=== PATIENT | female | born 1940 | race Caucasian/White ===

== ENCOUNTER → 2020-05-10 11:04 | Outpatient (CLI) | payer OTHER, SELFPAY ==
[2020-05-10 13:17] LABS: COVID19 -Nasal RAPID Negative (Negative)
== END ==
PROVIDERS: PCP Nurse Practitioner Family; Visit Provider Physician Assistant
DX: Z01.812 Encounter for preprocedural laboratory examination (principal); Z20.822 Contact with and (suspected) exposure to COVID-19
CPT/HCPCS: 87635; C9803

== ENCOUNTER → 2020-05-11 10:04 | Outpatient (CLI) | payer OTHER, SELFPAY ==
--- NOTE | 2020-05-11 15:04 | PM.TREADMILL ---
Cardiac Stress Test Report Referral & Results Date Patient Seen: 05/11/20 Time Patient Seen: 15:05 Requesting provider: Saroj Prabhakar Indication: precordial pain Rest ECG: sinus rhythm Procedure Note: Standard Remi protocol, 5:00 mins, 5.1 METS Good exercise capacity, JULIA -7% Normal hemodynamic response to exercise No chest pain or anginal symptoms No significant ST changes at peak exercise, rare PAC Impression: Normal exercise stress test Please note: Actual ECG tracings can be found in the PACS system.
--- NOTE | 2020-05-11 21:52 | DI.NM.S_ITS ---
DATE OF SERVICE: 05/11/2020 PROCEDURE: Exercise perfusion study. INDICATIONS: Chest pain with underlying hypertension, SVT. RADIOPHARMACEUTICAL: 25.2 millicurie of technetium-99m Myoview IV was injected at stress and 12.2 millicurie of technetium-99m Myoview IV was injected at rest. CARDIAC STRESS: The patient underwent exercise perfusion study under the supervision of an attending staff. She walked on Remi protocol for 5 minutes 01 seconds, achieved 129 percent of target heart rate, normal blood pressure response, -7 percent of JULIA and 7 METs of workload. No anginal symptoms. The patient felt dyspnea. Baseline rhythm was sinus. During peak exercise in early recovery, there was about less than [address] depression in Inferolateral leads, which got resolved within 1 minute in recovery. Rare PACs. No significant sustained ventricular arrhythmias seen. RAW DATA: There is adequate myocardial uptake. Breast shadow was seen. GATED STUDY: Resting LV ejection fraction 80% percent and stress LV ejection fraction 89 percent. No obvious wall motion abnormalities. Resting end- diastolic volume 59 mL. TID ratio 0.75, which is within normal limits. Lung/heart ratio 0.35, which is within normal limits. MYOCARDIAL PERFUSION: Stress supine images revealed minimally decreased perfusion of distal septum. The resting supine images revealed minimally decreased perfusion of apex. During stress prone, all those defects were normalized. There was normal myocardial perfusion. CONCLUSION: I will call this study a normal myocardial perfusion study with evidence of breast tissue attenuation artifact, which got resolved during prone images. Fair exercise tolerance. Enhanced chronotropic response. No significant sustained arrhythmias seen. Overall, this is a low-risk myocardial perfusion scan. The patient had a perfusion scan in October,, which also did not reveal any obvious ischemia infarction. There was breast tissue attenuation artifact seen that time as well. 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
== END ==
PROVIDERS: PCP Nurse Practitioner Family; Referring Provider Nurse Practitioner Family; Visit Provider Specialist
DX: R07.2 Precordial pain (principal); I47.1 Supraventricular tachycardia; I10 Essential (primary) hypertension
CPT/HCPCS: 78452; 93017; A9502

== ENCOUNTER → 2020-10-04 12:44 | Outpatient (CLI) | payer OTHER, SELFPAY ==
--- NOTE | 2020-10-04 | DI.RAD.S_ITS ---
PROCEDURE: XR LUMBAR SPINE 2-3V INDICATIONS: Pain in unspecified hip/Pain in unspecified knee TECHNIQUE: 3 views of the lumbar spine were acquired. COMPARISON: None. FINDINGS: Bones: 5 mia-[id number]-[id number] vertebrae are present. There is normal bony alignment. No vertebral body compression fractures. No suspicious bony lesions. Severe disc height loss at L4-L5 and L5-S1. Multilevel lower lumbar facet arthropathy. Probable foraminal stenosis at L4-L5 and L5-S1. Soft tissues: Overlying bowel gas pattern is normal. No suspicious soft tissue calcifications. IMPRESSION: Lower lumbar degenerative change with probable foraminal stenosis at L4-L5 and L5-S1. No evidence acute bony abnormality of the lumbar spine. If clinical suspicion and/or symptoms persist, further assessment with repeat plain films, or advanced imaging (e.g., CT, MRI, or bone scan) may be helpful for further assessment. Dictated by: Bandar Mendez M.D. on 10/04/2020 at 16:17 Approved by: Bandar Mendez M.D. on 10/04/2020 at 16:19
--- NOTE | 2020-10-04 | DI.RAD.S_ITS ---
PROCEDURE: XR HIP W PEL IF DONE PERRY MIN 4V INDICATIONS: Pain in unspecified hip/Pain in unspecified knee TECHNIQUE: AP pelvis with lateral view(s) of the bilateral hip(s). COMPARISON: None. FINDINGS: Bones: No fractures or dislocations. Pelvic ring appears intact. No suspicious bony lesions. 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 Soft tissues: The visualized bowel gas pattern is normal. No suspicious soft tissue calcifications. IMPRESSION: The degenerative osteoarthritis present at each hip is virtually identical and moderately severe. No prior trauma found. Dictated by: Kale Mendoza M.D. on 10/04/2020 at 14:05 Approved by: Kale Mendoza M.D. on 10/04/2020 at 14:06
--- NOTE | 2020-10-04 | DI.RAD.S_ITS ---
PROCEDURE: XR KNEE STANDING BI INDICATIONS: Pain in unspecified hip/Pain in unspecified knee TECHNIQUE: 6 total views of the bilateral knees . COMPARISON: None. FINDINGS: Bones: No acute fractures or dislocations. But there is asymmetric knee joint osteoarthritis greater on the right than the left at the medial compartments. There is near severe degeneration at the medial right knee and moderately severe such degeneration at the medial left knee. At the patellofemoral joint is mild knee joint space narrowing, greater on the right than left at the lateral facet. Patellar alignment is normal on the sunrise view. No suspicious bony lesions. Joint spaces appear normal with weightbearing. Soft tissues: No knee joint effusions. No suspicious soft tissue calcification. IMPRESSION: Asymmetric knee joint osteoarthritis right greater than left at the medial compartment and also the lateral facet of the patellofemoral joint. No effusion or loose body found. Dictated by: Kale Mendoza M.D. on 10/04/2020 at 14:06 Approved by: Kale Mendoza M.D. on 10/04/2020 at 14:07
== END ==
PROVIDERS: PCP Physician Assistant; Referring Provider Physician Assistant; Visit Provider Physician Assistant
DX: M54.5 Low back pain (principal); M47.816 Spondylosis without myelopathy or radiculopathy, lumbar region; M25.551 Pain in right hip; M25.561 Pain in right knee; M25.552 Pain in left hip; M25.562 Pain in left knee; M16.0 Bilateral primary osteoarthritis of hip; M17.0 Bilateral primary osteoarthritis of knee
CPT/HCPCS: 72100; 73522; 73565

== ENCOUNTER → 2021-01-15 09:57 | Outpatient (CLI) | payer OTHER, SELFPAY ==
[2021-01-15 10:32] LABS: Add Manual Diff / Slide Review NO; Basophils Absolute Auto 0 /uL (0-100); Basophils Percent Auto 0.9 % (0-2); Eosinophils Absolute Auto 100 /uL (0-450); Eosinophils Percent Auto 1.1 % (2-4); Hematocrit 39.8 % (36-46); Hemoglobin 13.3 g/dL (12.0-16.0); Lymphocytes Absolute Auto 2700 /uL (1100-4500); Lymphocytes Percent Auto 50.5 % (25-40); Mean Corpuscular HGB Conc 33.4 % (30-36); Mean Corpuscular Hemoglobin 34.1 PG (26-34); Mean Corpuscular Volume 102.1 fL (80-100); Monocytes Absolute Auto 500 /uL (0-900); Monocytes Percent Auto 9.4 % (3-14); Neutrophils Absolute Auto 2000 /uL (1500-7000); Neutrophils Percent Auto 38.1 % (50-75); Platelet Count 179 X10^3/uL (150-400); Red Cell Distribution Width 12.9 % (11.6-14.8); White Blood Cell Count 5.3 X10^3/uL (4.5-11.0)
[2021-01-15 11:14] LABS: Alanine Aminotransferase 24 IU/L (<35); Albumin Globulin Ratio 1.4 (1.0-2.8); Alkaline Phosphatase 62 U/L (38-126); Aspartate Aminotransferase 31 IU/L (14-36); BUN Creatinine Ratio 28.4 (6-22); Bilirubin Total 0.5 mg/dL (0.2-1.3); Blood Urea Nitrogen 23 mg/dL (7-17); Calcium 9.9 mg/dL (8.4-10.2); Carbon Dioxide 31 mmol/L (22-32); Chloride 104 mmol/L (98-107); Cholesterol 173 mg/dL (140-199); Estimated Glomerular Filt Rate > 60.0 mL/min (>60); Globulin 2.8 g/dL (1.7-4.1); Glucose 112 mg/dL (80-110); HDL Cholesterol 103 mg/dL (40-60); HEMOLYSIS < 15 (0-50); LDL Cholesterol Calculated 49 mg/dL (<100); Potassium 5.3 mmol/L (3.4-5.1); Sodium 140 mmol/L (137-145); Total Protein 6.8 g/dL (6.3-8.2); Triglycerides 105 mg/dL (35-150)
== END ==
PROVIDERS: PCP Physician Assistant; Referring Provider Physician Assistant; Visit Provider Physician Assistant
DX: E78.2 Mixed hyperlipidemia (principal)
CPT/HCPCS: 36415; 80053; 80061; 85025

== ENCOUNTER → 2021-02-19 08:46 | Outpatient (CLI) | payer OTHER, SELFPAY ==
[2021-02-19 09:24] LABS: Alanine Aminotransferase 24 IU/L (<35); Albumin 3.9 g/dL (3.5-5.0); Albumin Globulin Ratio 1.5 (1.0-2.8); Alkaline Phosphatase 60 U/L (38-126); Aspartate Aminotransferase 33 IU/L (14-36); Bilirubin Total 0.4 mg/dL (0.2-1.3); Blood Urea Nitrogen 19 mg/dL (7-17); Calcium 9.3 mg/dL (8.4-10.2); Carbon Dioxide 31 mmol/L (22-32); Chloride 102 mmol/L (98-107); Cholesterol 156 mg/dL (140-199); Estimated Glomerular Filt Rate > 60.0 mL/min (>60); Globulin 2.6 g/dL (1.7-4.1); Glucose 100 mg/dL (80-110); HDL Cholesterol 95 mg/dL (40-60); HEMOLYSIS < 15 (0-50); LDL Cholesterol Calculated 43 mg/dL (<100); Potassium 4.8 mmol/L (3.4-5.1); Sodium 137 mmol/L (137-145); Total Protein 6.5 g/dL (6.3-8.2); Triglycerides 90 mg/dL (35-150)
[2021-02-19 09:38] LABS: Add Manual Diff / Slide Review NO; Basophils Absolute Auto 0 /uL (0-100); Basophils Percent Auto 0.4 % (0-2); Eosinophils Absolute Auto 100 /uL (0-450); Eosinophils Percent Auto 1.6 % (2-4); Hemoglobin 12.7 g/dL (12.0-16.0); Lymphocytes Absolute Auto 3400 /uL (1100-4500); Lymphocytes Percent Auto 59.5 % (25-40); Mean Corpuscular HGB Conc 34.3 % (30-36); Mean Corpuscular Hemoglobin 33.9 PG (26-34); Mean Corpuscular Volume 98.9 fL (80-100); Monocytes Absolute Auto 500 /uL (0-900); Neutrophils Absolute Auto 1700 /uL (1500-7000); Neutrophils Percent Auto 29.5 % (50-75); Platelet Count 183 X10^3/uL (150-400); Red Blood Cell Count 3.74 X10^6/uL (4.0-5.2); Red Cell Distribution Width 12.5 % (11.6-14.8); White Blood Cell Count 5.7 X10^3/uL (4.5-11.0)
== END ==
PROVIDERS: PCP Physician Assistant; Referring Provider Physician Assistant; Visit Provider Physician Assistant
DX: E78.2 Mixed hyperlipidemia (principal)
CPT/HCPCS: 36415; 80053; 80061; 85025

== ENCOUNTER → 2021-05-22 09:30 | Outpatient (CLI) | payer OTHER, SELFPAY ==
--- NOTE | 2021-05-22 | DI.MRI.S_ITS ---
PROCEDURE: MR LUMBAR SPINE WO CON INDICATIONS: LUMBAR RADICALOPATHY TECHNIQUE: Noncontrast sagittal T1 spin echo and T2 fast echo, sagittal STIR, axial T1 and T2 fast spin echo through the lumbar spine. In cases with scoliosis, additional coronal T2 fast spin echo may be performed. COMPARISON: [facility], CR, XR LUMBAR SPINE 2-3V, 10/04/2020, 12:49. FINDINGS: Image quality: Excellent. Alignment and Curvature: 5 lumbar type vertebral bodies are present by plain film. There is normal bony alignment. Bone Marrow: Marrow is of normal overall signal. No acute vertebral body compression fractures. Mild reactive signal throughout the endplates of the lumbar and lower thoracic spine. Spinal Cord: Conus medullaris terminates at the lower L1 level. Visualized cord demonstrates normal signal and size. Paraspinous Soft Tissues: No paravertebral masses. T12-L1: Mild disc desiccation. No significant canal, or foraminal stenosis. L1-L2: Mild disc desiccation. No significant canal, or foraminal stenosis. L2-L3: Mild disc height loss and desiccation. Mild diffuse disc bulge. Mild facet and ligamentum flavum hypertrophy. Mild epidural lipomatosis. Mild canal stenosis. Mild bilateral foraminal stenosis. L3-L4: Mild disc height loss and desiccation. Mild diffuse disc bulge. Mild facet and ligamentum flavum hypertrophy. Moderate canal stenosis. Mild right and moderate left foraminal stenosis. L4-L5: Severe disc height loss and desiccation. Mild diffuse disc bulge. Mild facet and ligamentum flavum hypertrophy. Mild canal stenosis. Mild bilateral foraminal stenosis. L5-S1: Severe disc height loss and desiccation. Mild diffuse disc bulge/osteophyte. Mild bilateral facet and ligamentum flavum hypertrophy. Mild canal stenosis. Moderate bilateral foraminal stenosis. IMPRESSION: 1. Multilevel degenerative disc and facet disease, as well as ligamentum flavum hypertrophy and epidural lipomatosis. 2. Multilevel canal stenoses, worst at L3-L4, where there is moderate canal stenosis. 3. Multilevel foraminal stenoses, worst at L5-S1, where there is moderate foraminal stenosis. Dictated by: Ernst Galindo M.D. on 05/22/2021 at 10:51 Approved by: Ernst Galindo M.D. on 05/22/2021 at 10:54
== END ==
PROVIDERS: PCP Physician Assistant; Referring Provider Physician Assistant; Visit Provider Physician Assistant
DX: M51.16 Intervertebral disc disorders with radiculopathy, lumbar region (principal); M51.17 Intervertebral disc disorders with radiculopathy, lumbosacral region; M48.061 Spinal stenosis, lumbar region without neurogenic claudication; M48.07 Spinal stenosis, lumbosacral region
CPT/HCPCS: 72148

== ENCOUNTER → 2021-06-22 12:01 | Outpatient (CLI) | payer OTHER, SELFPAY ==
[2021-06-22 14:01] LABS: Alanine Aminotransferase 20 IU/L (<35); Albumin 4.2 g/dL (3.5-5.0); Albumin Globulin Ratio 1.4 (1.0-2.8); Alkaline Phosphatase 53 U/L (38-126); Aspartate Aminotransferase 27 IU/L (14-36); BUN Creatinine Ratio 25.7 (6-22); Bilirubin Total 0.5 mg/dL (0.2-1.3); Blood Urea Nitrogen 19 mg/dL (7-17); Calcium 9.6 mg/dL (8.4-10.2); Carbon Dioxide 28 mmol/L (22-32); Chloride 105 mmol/L (98-107); Estimated Glomerular Filt Rate > 60.0 mL/min (>60); Globulin 2.9 g/dL (1.7-4.1); Glucose 118 mg/dL (80-110); HEMOLYSIS < 15 (0-50); Potassium 4.5 mmol/L (3.4-5.1); Sodium 140 mmol/L (137-145); Total Protein 7.1 g/dL (6.3-8.2)
== END ==
PROVIDERS: PCP Physician Assistant; Referring Provider Physician Assistant Medical; Visit Provider Specialist
DX: E78.00 Pure hypercholesterolemia, unspecified (principal)
CPT/HCPCS: 36415; 80053

== ENCOUNTER → 2021-09-18 08:23 | Outpatient (CLI) | payer OTHER, SELFPAY ==
[2021-09-18 10:07] LABS: Alanine Aminotransferase 20 IU/L (<35); Albumin 3.9 g/dL (3.5-5.0); Albumin Globulin Ratio 1.3 (1.0-2.8); Alkaline Phosphatase 70 U/L (38-126); Aspartate Aminotransferase 30 IU/L (14-36); BUN Creatinine Ratio 25.3 (6-22); Bilirubin Total 0.5 mg/dL (0.2-1.3); Blood Urea Nitrogen 20 mg/dL (7-17); Calcium 9.3 mg/dL (8.4-10.2); Carbon Dioxide 31 mmol/L (22-32); Chloride 104 mmol/L (98-107); Estimated Glomerular Filt Rate > 60 mL/min (>60); Glucose 118 mg/dL (80-110); HEMOLYSIS < 15 (0-50); Magnesium 1.9 mg/dL (1.6-2.3); Potassium 4.5 mmol/L (3.4-5.1); Sodium 140 mmol/L (137-145); Total Protein 6.9 g/dL (6.3-8.2)
[2021-09-20 07:47] LABS: Cholesterol, Total 166 mg/dL (100-199); HDL-Cholesterol 87 mg/dL (>39); HDL-Particle (Total) 49.5 umol/L (>=30.5); LDL Particle 452 nmol/L (<1000); LDL Size 20.9 nm (>20.5); LDL-Cholsterol 58 mg/dL (0-99); LP-IR Score 35 (<=45); Small LDL- Particle <90 nmol/L (<=527); Triglycerides 126 mg/dL (0-149)
== END ==
PROVIDERS: PCP Physician Assistant; Visit Provider Physician Assistant Medical
DX: I47.1 Supraventricular tachycardia (principal); E78.00 Pure hypercholesterolemia, unspecified; R00.0 Tachycardia, unspecified
CPT/HCPCS: 36415; 80053; 80061; 83704; 83735

== ENCOUNTER → 2021-10-16 09:06 | Outpatient (CLI) | payer OTHER, SELFPAY ==
[2021-10-16 10:51] LABS: Add Manual Diff / Slide Review NO; Basophils Absolute Auto 0 /uL (0-100); Basophils Percent Auto 0.3 % (0-2); Eosinophils Absolute Auto 100 /uL (0-450); Eosinophils Percent Auto 1.3 % (2-4); Hematocrit 37.2 % (36-46); Hemoglobin 12.9 g/dL (12.0-16.0); Lymphocytes Absolute Auto 2800 /uL (1100-4500); Mean Corpuscular HGB Conc 34.6 % (30-36); Mean Corpuscular Hemoglobin 34.9 PG (26-34); Mean Corpuscular Volume 100.9 fL (80-100); Monocytes Absolute Auto 600 /uL (0-900); Monocytes Percent Auto 9.8 % (3-14); Neutrophils Absolute Auto 2300 /uL (1500-7000); Neutrophils Percent Auto 40.6 % (50-75); Platelet Count 188 X10^3/uL (150-400); Red Blood Cell Count 3.69 X10^6/uL (4.0-5.2); Red Cell Distribution Width 12.4 % (11.6-14.8); White Blood Cell Count 5.7 X10^3/uL (4.5-11.0)
[2021-10-16 11:08] LABS: Alanine Aminotransferase 19 IU/L (<35); Albumin Globulin Ratio 1.3 (1.0-2.8); Alkaline Phosphatase 74 U/L (38-126); Aspartate Aminotransferase 27 IU/L (14-36); BUN Creatinine Ratio 26.7 (6-22); Bilirubin Total 0.7 mg/dL (0.2-1.3); Blood Urea Nitrogen 20 mg/dL (7-17); Calcium 9.4 mg/dL (8.4-10.2); Carbon Dioxide 30 mmol/L (22-32); Chloride 100 mmol/L (98-107); Estimated Glomerular Filt Rate > 60 mL/min (>60); Globulin 3.1 g/dL (1.7-4.1); Glucose 117 mg/dL (80-110); HEMOLYSIS < 15 (0-50); Potassium 4.4 mmol/L (3.4-5.1); Sodium 135 mmol/L (137-145); Total Protein 7.1 g/dL (6.3-8.2)
[2021-10-16 11:54] LABS: Hemoglobin A1C% w Est Avg Glu 5.4 % (4.0-6.0)
== END ==
PROVIDERS: PCP Physician Assistant; Referring Provider Physician Assistant; Visit Provider Physician Assistant
DX: I10 Essential (primary) hypertension (principal); R73.9 Hyperglycemia, unspecified
CPT/HCPCS: 36415; 80053; 83036; 85025

== ENCOUNTER → 2021-10-24 07:59 | Outpatient (CLI) | payer OTHER, SELFPAY ==
[2021-10-24 09:02] LABS: Add Manual Diff / Slide Review NO; Basophils Absolute Auto 0 /uL (0-100); Basophils Percent Auto 0.5 % (0-2); Eosinophils Absolute Auto 100 /uL (0-450); Eosinophils Percent Auto 1.7 % (2-4); Hematocrit 37.7 % (36-46); Hemoglobin 12.5 g/dL (12.0-16.0); Lymphocytes Absolute Auto 3100 /uL (1100-4500); Lymphocytes Percent Auto 49.1 % (25-40); Mean Corpuscular HGB Conc 33.1 % (30-36); Mean Corpuscular Hemoglobin 33.9 PG (26-34); Mean Corpuscular Volume 102.3 fL (80-100); Monocytes Absolute Auto 600 /uL (0-900); Monocytes Percent Auto 10.3 % (3-14); Neutrophils Absolute Auto 2400 /uL (1500-7000); Neutrophils Percent Auto 38.4 % (50-75); Platelet Count 218 X10^3/uL (150-400); Red Blood Cell Count 3.68 X10^6/uL (4.0-5.2); Red Cell Distribution Width 12.4 % (11.6-14.8); White Blood Cell Count 6.2 X10^3/uL (4.5-11.0)
[2021-10-24 09:11] LABS: Hemoglobin A1C% w Est Avg Glu 5.4 % (4.0-6.0)
[2021-10-24 09:16] LABS: Appearance Urine UA CLEAR; Bilirubin Urine UA NEGATIVE (NEGATIVE); Color Urine UA YELLOW; Glucose Urine UA NEGATIVE (Negative); Ketones Urine UA NEGATIVE (NEGATIVE); Leukocyte Esterase Urine UA NEGATIVE (NEGATIVE); Nitrite Urine UA NEGATIVE (Negative); Occult Blood Urine UA 2+ (Negative); Protein Urine UA NEGATIVE (Negative); Urobilinogen Urine UA 0.2 E.U./dL (0.2)
[2021-10-24 09:26] LABS: Blood Urea Nitrogen 20 mg/dL (7-17); Calcium 9.2 mg/dL (8.4-10.2); Carbon Dioxide 29 mmol/L (22-32); Chloride 104 mmol/L (98-107); Estimated Glomerular Filt Rate > 60 mL/min (>60); Glucose 111 mg/dL (80-110); HEMOLYSIS < 15 (0-50); Potassium 4.9 mmol/L (3.4-5.1); Sodium 138 mmol/L (137-145)
[2021-10-24 09:29] LABS: Bacteria Urine Few (2-10); Culture Indicated Urine Specimen Cultured; Hyaline Casts Urine 0-1/LPF; RBC Urine 0-1/HPF (0-5/HPF); Squamous Epithelial Cell Urine 0-1 /HPF (0-5/HPF); WBC Urine 1-5/HPF (0-5/HPF)
== END ==
PROVIDERS: PCP Physician Assistant; Referring Provider Orthopaedic Surgery Foot and Ankle Surgery; Visit Provider Orthopaedic Surgery Foot and Ankle Surgery
DX: Z01.818 Encounter for other preprocedural examination (principal); R73.9 Hyperglycemia, unspecified; Z01.812 Encounter for preprocedural laboratory examination; N39.0 Urinary tract infection, site not specified
CPT/HCPCS: 36415; 80048; 81001; 83036; 85025; 87086; 93005; 93010

== ENCOUNTER → 2021-10-31 10:39 | Outpatient (CLI) | payer OTHER, SELFPAY ==
[2021-10-31 12:00] LABS: COVID19 -Nasal RAPID Negative (Negative)
== END ==
PROVIDERS: PCP Physician Assistant; Referring Provider Orthopaedic Surgery Foot and Ankle Surgery; Visit Provider Orthopaedic Surgery Foot and Ankle Surgery
DX: Z20.822 Contact with and (suspected) exposure to COVID-19 (principal)
CPT/HCPCS: 87635; C9803

== ENCOUNTER 2021-11-02 10:50 | Day surgery (SDC) | payer OTHER, SELFPAY ==
[2021-10-24 11:52] VITALS: BMI 27.0
[2021-11-02] VITALS (24 sets, daily range): BP systolic 101–153; BP diastolic 47–87; PULSE 61–94; RESP 8–22; TEMP 35.7–36.7; O2SAT 73–100; BMI 27.0
--- NOTE | 2021-11-02 06:00 | DI.RAD.S_ITS ---
PROCEDURE: XR KNEE RT 1TO2V INDICATIONS: prosthesis placement TECHNIQUE: 2 view(s) of the knee acquired. COMPARISON: None. FINDINGS: Bones: Patient is status post knee joint arthroplasty. Hardware components are in expected positions. Visualized bony structures are intact. Soft tissues: Overlying postoperative changes are noted. IMPRESSION: Expected appearance status post placement of right knee arthroplasty. Dictated by: Silvestre Saavedra RRA Interpreted: Oralia Szymanski MD on 11/02/2021 at 16:57 Transcribed by: LISA on 11/02/2021 at 16:57 Approved by: Oralia Szymanski M.D. on 11/02/2021 at 17:28
[2021-11-02] MEDS: ACETAMINOPHEN 325 MG TABLET 975 MG PO (11:36)
[2021-11-02] MEDS: CELECOXIB 200 MG CAPSULE PO (11:36)
[2021-11-02] MEDS: PREGABALIN 75 MG CAPSULE PO (11:37)
--- NOTE | 2021-11-02 11:50 | PM.PREOP ---
Pre-operative Note COVID-19 COVID-19 status: Negative Interval Note History & Physical reviewed/Exam performed by Physician: Yes Changes to H&P: No
[2021-11-02] MEDS: LACTATED RINGERS 1,000 ML 42 ML IV ×2 (11:55→15:57)
[2021-11-02] MEDS: CLINDAMYCIN 900 MG/50 ML PIGGYBACK 50 MG IV ×2 (12:40→21:28)
[2021-11-02] MEDS: TRANEXAMIC ACID 1,000 MG VIAL 1000 MG INJ ×2 (12:59→14:59)
--- NOTE | 2021-11-02 13:04 | SUR.OPER ---
Supine on padded OR bed. Pillow under head, arms secured on padded armboards <90 degree abduction. Safety belt across torso. Non-operative leg secured with tape over blanket over lower leg. Operative leg secured in DeMayo/Sanjeev/Nathe positioner. Foam padded brace at thigh of operative leg.
[2021-11-02] MEDS: BUPIVACAINE LIPOSOME 266 MG/20 ML VIAL INJ (13:12)
[2021-11-02] MEDS: MORPHINE 4 MG/ML INJ INJ (13:13)
[2021-11-02] MEDS: BUPIVACAINE 0.5% W/ EPI (PF) 30 ML VIAL INJ (13:18)
--- NOTE | 2021-11-02 15:32 | P.OP_ITS ---
Operative Date/Time/Diagnoses Date of procedure: 11/02/21 Time of procedure: 12:45 Pre-op diagnosis: Right knee arthritis Post-op diagnosis: same Procedure & Clinicians Procedure: Right total knee arthroplasty Same procedure as scheduled: Yes Indications: The patient is a 81-year-old female with end-stage buri-ap-ioiz knee arthritis. The patient has a significant right knee arthritis. They have failed conservative treatment with activity modifications, injections, physical therapy and bracing. They has been indicated for total knee replacement. The risks and benefits of the procedure have been discussed with the patient even opportunity to ask questions. The risks of surgery include but are not limited to infection, malunion, nonunion, fracture, loosening, persistence of pain, damage to nerves and blood vessels, need for additional procedures, DVT, PE, cardiopulmonary complications and . The patient expressed a thorough understanding of the risks and benefits of surgery and has elected to proceed. Consent was signed in the office. During the operation the services of physician surgical services manager were medically indicated and necessary to provide the exposure of the operative site for the surgical procedure and to maintain the limb in a proper position to carry out the procedure safely and efficiently. Without a qualified assistant signal maintainer being present this would extend the operative procedure and would have made the procedure more technically difficult to perform. The surgical services manager was medically necessary for the proper positioning, retraction and manipulation of the limb, proper exposure, and manipulation of the tissue for implantation implants and closure. Surgeon: Ada Dangelo Cdl Team Truck Driver: Mirella Mccormick Anesthesia Type: General and Local Operative Notes Findings: End-stage arthritis tricompartmental. Calcified lateral meniscus Closure Type: primary Specimen(s): none sent Prosthetic devices, grafts, tissues, transplants, or devices: Mauricio and nephew JourneyII BCS cobalt chromium femoral component size 3 right Journey nonporous tibial base plate size 3 right 32 mm 7.5 thickness round patella 9 mm journey poly right size 3 Estimated Blood Loss (mL): 50 Blood products transfused: none Tourniquet time (min): 113 Procedure in detail: Patient was seen in the preoperative area where the patient and site of surgery were identified in the operative knee was marked informed consent confirmed. Patient received the appropriate preoperative antibiotics and medications was taken to the operating room placed on operating table in the supine position. general anesthetic were administered. The operative extremity was then prepped and draped in the standard sterile fashion with a nonsterile tourniquet high on the thigh. Patient was placed on the green foam bolsters. A lateral post was placed at the level of the proximal thigh back as a lateral post. Formal time-out procedure was performed confirming the patient's side and site of surgery and administration of appropriate preoperative antibiotics. Clindamycin was used for penicillin allergy. And implants were in the room accounted for. All were in agreement. Patient was prepped and draped in the standard sterile fashion and the foot was placed into the [facility] leg severino. This was taken into high flexion and the incision was marked out over the anterior knee to the level of the medial tubercle tubercle. The Esmarch was then used for exsanguination and the tourniquet was inflated to 250 mmHg. Was made through the skin and subcutaneous tissue in high flexion this was then brought down into 30? of flexion for the medial parapatellar arthrotomy. A marker was used to norma the arthrotomy site for later repair. Joint fluid was evacuated. The anterior osteophytes and soft tissues were removed. Routine medial release was initially made along the medial proximal tibia. Then the rotational landmarks of Whitesides line and the trans epicondylar axis were marked on the femur with electrocautery. Then the intramedullary guide for the femur was created. The distal femoral cut was made in 6? of valgus using the intramedullary guide with the cut setting on 0 standard cut as there was no preoperative flexion contracture. The ACL and PCL released. Calcified lateral meniscus was removed. The proximal tibia was then cut using the intramedullary guide taking 8 mm off the less involved side this was the lateral plateau and between 4 and 5 mm off the medial side as this patient was quite neutral and her tricompartmental arthritis. The Yifan wing was used to check the slope through the guide. In extension remainders of the medial and lateral menisci were removed. The extension flexion gaps were then checked using the flexion extension blocks . A 9 mm poly provided excellent stability. The Femur was then sized and the rotation set using the posterior condyle referencing 3? of external rotation. This measured a size 3. Cut block was then placed and the anterior, posterior and chamfer cuts were then made. The posterior osteophytes and soft tissues were then removed. The popliteus tendon was visualized and protected. Then in extension the posterior capsule was injected with approximately 1/4 of the mixture of 60 mL of 0.25% Marcaine and 20 mL of Exparel care to avoid excessive injection posterior laterally. The remainder of this was saved for the capsule and subcutaneous tissue and placed during cement curing. Attention was then returned to the tibia and this was prepared with the rotation set by the extramedullary guide. Lined up with the tibial crest and the 2nd toe. The tibia was sized and a size 3 fit well without overhang. The tibial trial was then pinned in place and the trial femoral components were placed. Then the intercondylar notch was cut through the femoral trial to create the box this was done with the distal than the proximal drill and then the box cut distally and then proximally. Next the insert was placed and the trial poly placed. This was stable in flexion and extension and there was a 0- 135 degree range of motion. The leg was then taken into extension and the patella was everted and the patella was cut to accommodate the patellar button. The patella itself was quite marginal measured 22 mm. 7.5 was proximally cut off and This was sized to a 32 mm button for a 7.5 mm thickness to recreate the original dimensions of the patella. Leg was flexed back up the poly removed. The tibia was then finished with the drill and flange cuts and then this was removed. All trials were removed. The wound and bone was irrigated with pulsatile lavage. This was then dried with a sponge. The components were verified and opened and the cement was mixed. Cement was applied to the components and then to the bone then the tibia was cemented in place 1st followed by the femur then the patella. Excess cement was removed. Remainder of the injection was injected around the capsule. A 10 mm poly was placed back in as a trial for compression while cementing. And the leg was placed in extension. After this was cured approximately 15 minutes later and the dilute Betadine solution was placed for at least 3 minutes in the wound this was then irrigated out and the final poly was placed. The tourniquet was released hemostasis was achieved. The capsule was closed with 1. Ethibond rodriguez ture. Subcutaneous layer was closed with 3-0 Vicryl suture. Skin was closed with a running V lock suture and Dermabond. Knee was taken through full range of motion confirmed extension to 0? full range of motion to the 135? of flexion and stability in varus and valgus stress testing. An Aquacel dressing was placed. An Kobi wrap was applied. Anesthetic was terminated the patient was woken from anesthesia and taken to recovery room in good condition. There no immediate complications from this procedure. The patient will be maintained on a standard total knee replacement protocol with weight-bearing as tolerated. Complications: none Post-operative Condition: stable Disposition: PACU Plan for aftercare: Weightbear as tolerated right knee. Will have pain medication on the floor. Will get 24 hours of antibiotics. Will start aspirin for DVT prophylaxis postoperatively. Will be discharged home when medically able. Will work with physical therapy. Will follow up in 2 [facility]
[2021-11-02] MEDS: KETOROLAC 30 MG/ML VIAL 15 MG IV ×2 (16:36→19:06)
--- NOTE | 2021-11-02 17:49 | SUR.PHASEI ---
Pt A&Ox4, denies any distress, dressing C/D/I, VSS, and ready to transfer to room. Report given to receiving RN using SBAR with time allowed for questions. Pt transported to room 214, transfer of care to receiving RN.
[2021-11-02] MEDS: LACTATED RINGERS 1,000 ML 100 ML IV (18:50)
[2021-11-02] MEDS: ACETAMINOPHEN 325 MG TABLET 650 MG PO (19:09)
[2021-11-02] MEDS: METOPROLOL ER 25 MG TABLET PO (21:24)
[2021-11-02] MEDS: DOCUSATE 100 MG CAPSULE PO (21:24)
[2021-11-02] MEDS: ASPIRIN EC 81 MG TABLET PO (21:24)
[2021-11-02] MEDS: MAGNESIUM OXIDE 400 MG TABLET PO (21:24)
[2021-11-03] MEDS: ACETAMINOPHEN 325 MG TABLET 650 MG PO ×2 (00:03→05:06)
[2021-11-03] MEDS: TRAMADOL 50 MG TABLET PO (00:04)
[2021-11-03] MEDS: KETOROLAC 30 MG/ML VIAL 15 MG IV ×2 (02:40→09:30)
[2021-11-03 04:36] VITALS: BP 122/64; PULSE 68; RESP 16; TEMP 36.1; O2SAT 98
[2021-11-03] MEDS: CLINDAMYCIN 900 MG/50 ML PIGGYBACK 50 MG IV (04:55)
[2021-11-03 07:05] VITALS: BP 108/59; PULSE 68; RESP 16; TEMP 36.7; O2SAT 98
[2021-11-03 07:14] LABS: Hematocrit 30.3 % (36-46); Hemoglobin 10.4 g/dL (12.0-16.0)
--- NOTE | 2021-11-03 09:01 | CM.DANOTE ---
DCP Assessment: Payor: Faye PCP: Hali Lamar MD Pt presented to the hospital for a scheduled right TKA on 11/[address] Dangelo. Pt was seen prior to her scheduled surgery date in the outpatient surgery office for pre-op and to discuss the surgical procedure. Pt admitted post surgery procedure for overnight evaluation and PT eval pending discharge. DCP met with pt this morning to discuss discuss planning needs. Pt sitting up in bed with daughter, Dee, at bedside. DCP introduced herself and role. Pt verbalized that she is fairly independent at baseline and does not use any DME's. Pt states that she lives in a 3 story house in [place] with her Saroj and ex Mario. Pt states that her other daughter lives across the street from her but is currently out of town. Pt states that she has a good support system and a lot of help at home. Pt daughter, Dee, will transport pt back home following discharge. Pt states that the doctor came by to see her today and she is able to go home today pending PT eval. Pt states that she has already set up outpatient PT. Pt also states that she has been using her walker to get up and go to the bathroom. Pt denies any discharge needs at this time. DCP does not identify any needs. White board updated and instructed her to call with any other questions that may arise. Pt thankful for discussion. P: Pt to discharge home today pending PT eval. Pt daughter with transport pt home following discharge. Diamond Rodriguez RN/CHRIS Discharge Planning/Care Management Advanced directive, confirm from FAMILY Start: 11/02/21 18:40 Freq: Q24H Status: Active Protocol: Document 11/02/21 18:40 INGRID (Rec: 11/02/21 19:03 INGRID [id number]) Advance Directive, confirm on record Time 19:03 Person contacted patient Copy received No CM Discharge Assessment Start: 11/03/21 08:59 Freq: Status: Active Protocol: Document 11/03/21 08:59 NAOMY (Rec: 11/03/21 09:00 AJ [id number]) Discharge Planning Assessment Assigned Software Tester Diamond Rodriguez RN/CHRIS Advance Directives? Yes Advance Directives on File Yes History Provided By Patient Prior Living Arrangements House Household Members spouse Type of transporation used prior to Drives own vehicle admit Comment But currently relying on others Independent with ADL's Yes Is patient alert and oriented? Yes Caregiver for Another No DME Already Rented / Owned FWW / Walker Barriers to Discharge No Discharge Plan Home Transportation Arrangement Daughter POV Referrals Initiated None needed Additional Comment Pt already has outpatient PT set up Whiteboard Updated in Patient Room with Yes name and ext. # of Software Tester Comment Instructed to call Review Status In Process Please Provide Date Initial DC 11/03/21 Assessment Was Performed Next Review Type Continued Stay Review Pre-Anesthesia Assessment Start: 10/24/21 11:52 Freq: Status: Active Protocol: Document 10/24/21 11:52 CAB (Rec: 10/24/21 12:18 CAB [id number]) Pre-Anesthesia Assessment Patient Information Reviewed Via Chart Review,Phone Assessment Diagnostic Results BMP/CMP,CBC,EKG Comment Labs/ECG @ [facility] 10/24/21, COVID screen - needs to schedule Primary Care Provider Hali Lamar Seen Specialist in Last 12 Months Yes Specialist Seen Hydro Excavation Operator,Orthopedist Primary Language Armenian Production Reproduction Manager Required No Height 154.94 cm Weight 64.864 kg Body Mass Index (BMI) 27.0 Hearing Ability Normal Visual Assist Magnifying Glass Dentition Type Teeth, Natural Present Barriers to Learning None Hx Anesthesia Reactions No Hx Family Anesthesia Reaction No Hx Malignant Hyperthermia No Hx Blood Transfusions No Anesthesia Review Requested No alcohol intake current alcohol intake frequency holidays/special occasions only Smoking Status Former smoker how long ago did patient quit smoking Quit early ' Substance Use Type does not use Pain Present Pain Reported Musculoskeletal Symptoms Joint Pain History of Falling (Recent or History of Yes ) Patient is completely paralyzed or No completely immobile Mental Status Oriented to own ability Comment Needs to get FWW, cane Is patient on oxygen? No Does patient have BATEMAN/SOB No Hx Sleep Apnea No Currently Taking a Beta Barbara No Hx Chest Pain Yes: Nuc scan 05/11/20 @ [facility]- negative study Hx SOB No Hx Syncope or Dizziness No Anti-Coagulant Therapy Yes: 81mg ASA-pt will check w/ Cardiology if needed to hold Has a Hydro Excavation Operator Yes: Dr. Prabhakar-visit 09/24/21 Hx Pacemaker/ICD No Pacemaker Rep Required? No Cardiac Clearance Received Yes Comment Cardiac records scanned Urinary Catheter Present No Hx Urinary Self Catheterization No Diabetes No Patient No Lactating No Presence of External or Internal Medical Yes: Bilat eye lens Devices Have you had any close contact with No someone diagnosed with COVID-19? Received a COVID vaccine? Yes: Body rash with last Moderna vaccine Received all doses? No Marital Status Lives With spouse Support System Child/Children,Spouse Does the Patient Have Assistance After Yes: Daughter lives across the [address], legally blind Patient Discharge Plan Description Return Home Comment Pt not advised on length of stay per surgeon's office Feels Safe in Current Environment Yes Been Physically Hurt or Threatened By a No Person in Current Environment Do you have thoughts of harming yourself None or others? Are you currently considering suicide? No Do you have a plan to hurt yourself or No Plan others? Do You Have Any Spiritual Beliefs That No May Affect Your HC Choices? Do You Have Any Cultural Practices That No May Affect Your HC Choices? Comment Rastafari Who Can We Speak to About Patient's Care Family, friends Identifying Code for Release of Patient Declines to issue Information Health Care Proxy/Next of Kin Saroj () Health Care Proxy Emergency Contact Name Mario Durán (ex-) Emergency Contact Advance Directives? Yes: POLST Advance Directives on File Yes PAC Instructions Durable medical equipment, Medications to take/avoid, Nasal antibiotic,No ETOH/ petroleum product on skin DOS, NPO,Pre-surgical wash,Sensory aids,Sturdy shoes/comfortable clothes,Do not bring valuables and remove jewelry
--- NOTE | 2021-11-03 09:20 | PT.IIE ---
Current Diagnoses Unilateral primary osteoarthritis, right knee (11/02/21) Surgery Performed Operation Date: 11/02/21 12:30 Actual Procedures p Total Knee Arthroplasty(Right) - Ada Dangelo MD Surgical History (Last Reviewed 11/03/21 @ 10:26 by Mirella Mccormick PA-C) History of cataract removal with insertion of prosthetic lens Hx of appendectomy Status post breast reduction Status post cholecystectomy Status post hysterectomy Medical History (Last Reviewed 11/03/21 @ 10:26 by Mirella Mccormick PA-C) Ascending aorta enlargement Carpal tunnel syndrome Diverticular disease HLD (hyperlipidemia) Mild pulmonary hypertension Palpitations SVT (supraventricular tachycardia) Vertigo Physical Therapy Inpatient Evaluation/Re-Eval M1 PT/OT-IP Prior Functional Status Start: 11/03/21 13:28 Freq: NEEDED Status: Active Protocol: Document 11/03/21 09:20 AB (Rec: 11/03/21 14:12 AB [id number]) Medical Review Prior Functional Status Medical History Reviewed Yes Communication able to make needs known Mobility and Gait pt stated that she is modified independent with all mobilities and ambulation without AD but uses a SPC occasionally for outdoor mobility Social History Household Members spouse Living Arrangements House Number of Floors (Floors) 3 or More Floors Number of Stairs To Enter/Railing? pt stays on the main level of the house no steps to enter Home Environment High Toilet,Walk in Shower Home Equipment Straight Cane,Shower Seat without Backrest,Hand Held Shower Additional Social History Comment pt's daugther stated that she can stay with pt to assist if needed pt has an adjustable bed M2 PT-IP Current Condition Start: 11/03/21 13:28 Freq: NEEDED Status: Active Protocol: Document 11/03/21 09:20 AB (Rec: 11/03/21 14:12 AB [id number]) Physical Therapy Current Condition Current Condition Evaluation Date 11/03/21 Treatment Diagnosis s/p R TKA; difficulty in walking Onset Date 11/02/21 M3 PT-IP Subjective Start: 11/03/21 13:28 Freq: NEEDED Status: Active Protocol: Document 11/03/21 09:20 AB (Rec: 11/03/21 14:12 AB [id number]) Subjective Physical Therapy Visit Type Type Initial Evaluation Visit Start Time 09:20 Visit Stop Time 10:07 Total Visit Minutes 47 Number of FELT HAT INSPECTOR AND PACKER Visits 0 Physical Therapy Visit Comments Patient Comments agreeable to do PT M4 PT-IP Mobility and Gait Start: 11/03/21 13:28 Freq: NEEDED Status: Active Protocol: Document 11/03/21 09:20 AB (Rec: 11/03/21 14:12 [id number]) PT-Bed Mobility Assessment Supine to Sit Supine to Sit Standby Assistance PT-Transfer Assessment Sit to and From Stand Sit to and from Stand Standby Assistance,Use of Upper Extremities Equipment Transfer Assistive Device Gait Belt,Front Wheeled Walker Orthotic/Prosthetic Devices or Brace: No Transfers Transfer Destination Chair Transfer Technique ambulated Transfer Ability Level of Assist Standby Assistance,1 Person Assistance,Use of Upper Extremities Comments Mobility Comments daughter in room with pt. pt agreed to do PT. completed supine to sti SBA. sit to stand SBA and ambulated in room to the chair using fWW SBA. educated pt on safety as pt tends to be impulsive. agreed to ambulate in the hallway and completed ~ 100 ft using FWW SBa. pt agreed to stay up on the chair. positioned on the chair. call light and table placed wtihin reach. educated pt and daughter regarding safety and SBA at home. both agreed and understood. Gait Assessment Gait Gait Assistance Required: Standby Assistance Distance (Feet) 100 Able to Maintain Weight Bearing Status Yes During Gait Assistive Devices Assistive Device Gait Belt,Front Wheeled Walker Orthotic/Prosthetic Devices or Brace: No Gait Deviations General Gait Pattern Antalgic,Decreased Stride Length,Decreased Feet Clearance Factors Limiting Gait Function Factors Limiting Gait Function Decreased Activity Tolerance, Limited Range of Motion,Pain, Poor Balance,Poor Safety Awareness PT-Balance Assessment Sitting Balance and Reactions Static Sitting Balance Ability Normal Dynamic Sitting Balance Ability Normal Standing Balance and Reactions Static Standing Balance Ability Good Dynamic Standing Balance Ability Fair Device Used FWW M5 PT-IP Objective Assessments Start: 11/03/21 13:28 Freq: NEEDED Status: Active Protocol: Document 11/03/21 09:20 AB (Rec: 11/03/21 14:12 [id number]) Orientation Orientation/Cognition Level of Alertness Alert Orientation Name,Place,Situation Language Function Ability No Deficits Noted Safety Awareness Decreased Safety Awareness Memory Description No Deficits Noted Gross Range of Motion Lower Extremity ROM Assessment Within Functional Limits Impairments R knee flexion: 70 deg R knee extension: 10 deg less to 0 Strength Lower Extremity Strength Assessment Right Impaired Hip 4/5 Knee 4-/5 Sensation Assessment Sensation Gross Sensation WNL Muscle Tone Muscle Tone WNL Yes M6 PT-IP Treatment Start: 11/03/21 13:28 Freq: NEEDED Status: Active Protocol: Document 11/03/21 09:20 AB (Rec: 11/03/21 14:12 AB [id number]) Physical Therapy Treatment Education Education Provided Precautions,Weight Bearing Status,Post-Op Packet,Safety M7 PT-IP Assessment and Plan Start: 11/03/21 13:28 Freq: NEEDED Status: Active Protocol: Document 11/03/21 09:20 AB (Rec: 11/03/21 14:12 AB [id number]) PT Summary Assessment and Plan Potential Rehabilitation Potential Good Status of Condition at Evaluation Stable Summary Impairments Pain,ROM,Strength,Balance, Coordination,Sensation,Tone, Cognition,Bed Mobility, Transfers,Gait,Activity Tolerance Assessment Summary pt requiring SBA with mobility using FWW and plans to go home with family to assist. pt may go home when medically stable. Goals Bed Mobility Goal Independent Transfer Goal Independent,Front Wheeled Walker Gait Goal Independent,Front Wheel Walker Gait Distance 300 Days to Meet Goals 3 Frequency of Treatment Frequency Of Treatment Twice a Day Treatment Plan Physical Therapy Treatment Plan Bed Mobility Training,Transfer Training,Gait Training, Therapeutic Exercise,Balance Retraining,Post Op Education, Discharge Planning,Hot or Cold Pack,Neuromuscular Re-ed, Coordination Retraining,Manual Therapy Weight Bearing Status Weight Bearing Status Weight Bear as Tolerated Allowed Weight Bearing Amount (enter % RLE WBAT or #) (%) Recommendations To Nursing Amount of Assist Needed Standby Assistance Discharge Recommendations PT Discharge Recommendations Home with Assistance, Outpatient PT Transportation Needs at Discharge Private Vehicle
[2021-11-03] MEDS: ASPIRIN EC 81 MG TABLET PO (09:30)
[2021-11-03] MEDS: MAGNESIUM OXIDE 400 MG TABLET PO (09:30)
--- NOTE | 2021-11-03 10:25 | P.DS_ITS ---
History of Present Illness History of Present Illness Date Patient Seen: 11/03/21 Time Patient Seen: 09:20 Chief complaint: RT TKA *OPB* Narrative: Patient is complaining of mild right knee pain this morning. She is using Tylenol and Toradol and an occasional tramadol. Her daughter is at bedside. Overall she is feeling well and would like to be discharged home today. She denies any fevers, chills, night sweats. Discharge Providers Provider Discharge Date: 11/03/21 Primary care physician: Hali Lamar PA-C Consults: 11/02/21 17:50 Consult to Discharge Planning Routine Comment: Consult to Physical Therapy Evaluate & Treat Comment: Physician Instructions: postop TKA protocol Consult to Respiratory Therapy Evaluate & Treat Comment: Physician Instructions: Evaluate and treat Discharge provider: Mirella Mccormick PA-C Summary Hospital Course Discharge Diagnosis: Right knee osteoarthritis Hospital Course: Operative Date/Time/Diagnoses Date of procedure: 11/02/21 Time of procedure: 12:45 Procedure & Clinicians Procedure: Right total knee arthroplasty Same procedure as scheduled: Yes Indications: The patient is a 81-year-old female with end-stage muek-mt-ener knee arthritis.? The patient has a significant right knee arthritis. They have failed conservative treatment with activity modifications, injections, physical therapy and bracing.? They has been indicated for total knee replacement.? The risks and benefits of the procedure have been discussed with the patient even opportunity to ask questions.? The risks of surgery include but are not limited to infection, malunion, nonunion, fracture, loosening, persistence of pain, damage to nerves and blood vessels, need for additional procedures, DVT, PE, cardiopulmonary complications and .? The patient expressed a thorough understanding of the risks and benefits of surgery and has elected to proceed.? Consent was signed in the office. During the operation the services of physician surgical technology instructor were medically indicated and necessary to provide the exposure of the operative site for the surgical procedure and to maintain the limb in a proper position to carry out the procedure safely and efficiently.? Without a qualified executive sales assistant being present this would extend the operative procedure and would have made the procedure more technically difficult to perform.? The surgical technology instructor was medically necessary for the proper positioning, retraction and manipulation of the limb, proper exposure, and manipulation of the tissue for implantation implants and closure. Surgeon: Ada Dangelo Evp And Chief Operating Officer: Mirella Mccormick Anesthesia Type: General and Local Operative Notes Findings: End-stage arthritis tricompartmental.? Calcified lateral meniscus Closure Type: primary Specimen(s): none sent Prosthetic devices, grafts, tissues, transplants, or devices: Mauricio and nephew SabinoneyII BCS cobalt chromium femoral component size 3 right Journey nonporous tibial base plate size 3 right 32 mm 7.5 thickness round patella 9 mm journey poly right size 3 Estimated Blood Loss (mL): 50 Blood products transfused: none Tourniquet time (min): 113 Status at Discharge Cognitive/behavioral status at discharge: at baseline, oriented Functional status at discharge: uses cane/walker Overall status at discharge: patient is progressing back to baseline Exam Vital Signs (past 8 hours): - 11/03/21 04:36 11/03/21 07:05 Temperature 96.9 F L 98.1 F Pulse Rate 68 68 Respiratory Rate 16 16 Blood Pressure 122/64 108/59 L Pulse Oximetry 98 98 Oxygen Flow Rate 0 Oxygen Delivery Method Nasal Cannula Oxygen Flow Rate 0 Narrative Exam Narrative: Pleasant 81-year-old female, resting comfortably in bed, no acute distress. Her daughter is at bedside. Dressing is clean, dry, intact. Bilateral lower extremity: Motor functions are grossly intact, sensation is grossly intact to light touch, calves are soft and nontender to palpation. Objective Labs Result Diagrams: 11/03/21 06:25 Labs: Laboratory Results - last 24 hr 11/03/21 06:25 Hgb 10.4 L Hct 30.3 L PFSH Medical History Ascending aorta enlargement Carpal tunnel syndrome Diverticular disease HLD (hyperlipidemia) Mild pulmonary hypertension Palpitations SVT (supraventricular tachycardia) Vertigo Surgical History History of cataract removal with insertion of prosthetic lens Hx of appendectomy Status post breast reduction Status post cholecystectomy Status post hysterectomy Family History Brother Secondary hypertension, unspecified Social History household members: spouse Smoking Status: Former smoker alcohol intake: current Discharge Assessment & Plan Assessment and Plan Assessment: -stable status post right total knee arthroplasty. Plan of Treatment: -mobilize with PT. weight-bearing as tolerated with front wheel walker. -continue with multimodal pain management. Will DC Toradol and changed to ibuprofen for home medications. -aspirin 81 mg twice daily for DVT prophylaxis -DC home today once cleared by PT Discharge Plan Discharge Plan Patient Disposition: Home Discharge orders & Medications Discharge Orders: Discharge (Order); Ordered 11/03/21 Ordered By: Mirella Mccormick Prescriptions: New aspirin 81 mg Tablet,Delayed Release (Dr/Ec) 81 mg PO BID 42 Days Qty: 84 0RF Rx Instructions: Prevent blood clots docusate sodium 100 mg Capsule 100 mg PO BID PRN (Reason: Constipation from narcotic pain meds) Qty: 20 0RF ondansetron 4 mg Tablet,Disintegrating 4 mg PO Q4HR PRN (Reason: Nausea And Vomiting) Qty: 10 0RF tramadol 50 mg Tablet 50 mg PO QID PRN (Reason: Pain, Moderate (4-6)) Qty: 42 0RF ibuprofen 800 mg tablet 800 mg PO Q8H MDD Max 2400 mg per day PRN (Reason: pain/inflammation) 10 Days Qty: 30 0RF acetaminophen 500 mg capsule See Rx Instructions .ROUTE .COMPLEX MDD Max 3000 mg a day PRN (Reason: fever or pain) Qty: 90 0RF Rx Instructions: Take 1-2 tablets by mouth every 8 hours as needed for pain Continued Premarin 0.3 MG tablet 0.3 mg PO QDAY Qty: 90 3RF magnesium 200 mg tablet 375 mg PO BID Qty: 0 Label Comments: Takes 1.5 tabs bid atorvastatin 20 mg Tablet 20 mg PO BEDTIME metoprolol succinate 25 mg Tablet Extended Release 24 Hr 25 mg PO BID Discontinued aspirin 81 MG tablet,delayed release (DR/EC) 81 mg PO QDAY Qty: 0 Follow up/Referrals: Hali Lamar PA-C [Primary Care Provider] - Ada Dangelo MD [Physician] - (10-14 days for postoperative visit) Diet/Activity/Treatments Diet: Diet as Tolerated Other treatments: Dressing/Wound care: -Remove the Kobi wrap 48 hours after surgery. -Keep Aquacell dressing in place until postoperative follow-up office visit. -you may see some drainage on the bandage, this is ok. If it is leaking or saturated, then the dressing can be changed to clean gauze or a clean surgical dressing from a pharmacy or reinforced with additional gauze and paper tape or dressings over the top. Otherwise, just keep dressing in place until follow up. -Okay to shower. Keep wound out of direct water stream. No soaking or submerging until all the scabs fall off (approximately 6 weeks). -Please call the office if dressing becomes significantly wet, soiled, or saturated. Activities: -Weight-bearing as tolerated. Use front wheeled walker, and progress to cane when safe. -Continue with home exercises as directed by your physical therapist. -Elevate ?toes above the nose if you have significant swelling in your lower leg. (A wedge pillow is easiest.) -Ice your incision as needed for pain/inflammation/swelling. Protect your skin with a folded pillowcase. Follow-up: -Follow-up with your surgeon or PA in the office in 10-14 days after surgery. -Follow-up with your surgeon 6 weeks postoperatively. Call the office if you have chest pain, shortness of breath, significant swelling that will not resolve with elevating, fever over 101?, significantly worsening pain. [facility]: [phone] You have been discharged with medications. These have already been sent to your pharmacy. Pain include pain medications: 1.Tramadol take 50 mg orally every 6 hours as needed for pain. Narcotic medication can make you feel constipated. You can get cvcr-shd-zmlceyf stool softener such as docusate sodium-Colace at a pharmacy to help with this. 2. You also have prescriptions for ibuprofen 800 mg take this 3 times a day for least the 1st 10 days after surgery to help with pain control. 3. And acetaminophen (Tylenol) take 500-1000 mg 3 times a day for pain control. 4. You also have a prescription for Zofran (ondansetron) this is a strong anti nausea medication that can be taken up to every 8 hours as needed for nausea 5. Additionally will take a baby aspirin 81 mg twice a day (morning and night) to help prevent blood clots x6 weeks Skin/Wound/Dressing Care Report to your healthcare provider any signs of infection, such as:: chills, fever, night sweats, unusual drainage and unusual redness Visit Report/Discharge Packet Instructions: DI for Knee Replacement Stand Alone Forms: Surgery Discharge Discharge Data Primary Care Provider: Hali Lamar Attending Provider: Ada Dangelo VTE Deep Vein Thrombosis/Pulmonary Embolism Present on Admission: No
[2021-11-03 10:28] VITALS: BP 108/59; PULSE 68
[2021-11-03] MEDS: SODIUM CHLORIDE 0.9% FLUSH 10 ML IV (10:31)
--- NOTE | 2021-11-03 14:56 | PC.NURSE ---
Pt AOx4. Experienced no pain this morning, but after getting up to use the restroom she reported a pain level 5/10. Daughter was at bedside. PT worked with patient today. Discharge instructions given to patient. IV removed, intact. VS stable.
== END 2021-11-03 11:30 | disposition home or self-care (01) ==
LOC: OR 16:30 → AC 17:56
PROVIDERS: PCP Physician Assistant; Referring Provider Physician Assistant; Visit Provider Orthopaedic Surgery Foot and Ankle Surgery
PROC: 0SRC0JZ Replacement of Right Knee Joint with Synthetic Substitute, Open Approach (ICD-10-PCS; CPT 27447; principal; 2021-11-02 12:30)
DX: M17.11 Unilateral primary osteoarthritis, right knee (principal); F17.210 Nicotine dependence, cigarettes, uncomplicated; E78.5 Hyperlipidemia, unspecified; I10 Essential (primary) hypertension
CPT/HCPCS: 27447; 36415; 73560; 85014; 85018; 97116; 97161; C1776; C1713; C9290; J1100; J1170; J1885; J2250; J2270; J2405; J2704; J3010

== ENCOUNTER → 2022-03-20 10:53 | Outpatient (CLI) | payer OTHER, SELFPAY ==
[2021-11-02 18:13] VITALS: BMI 27.0
[2022-03-20 12:36] LABS: Add Manual Diff / Slide Review NO; Basophils Absolute Auto 0 /uL (0-100); Basophils Percent Auto 0.3 % (0-2); Eosinophils Absolute Auto 0 /uL (0-450); Eosinophils Percent Auto 0.8 % (2-4); Lymphocytes Absolute Auto 3000 /uL (1100-4500); Lymphocytes Percent Auto 48.5 % (25-40); Mean Corpuscular HGB Conc 34.2 % (30-36); Mean Corpuscular Hemoglobin 33.1 PG (26-34); Mean Corpuscular Volume 96.8 fL (80-100); Monocytes Absolute Auto 600 /uL (0-900); Monocytes Percent Auto 9.3 % (3-14); Neutrophils Absolute Auto 2600 /uL (1500-7000); Neutrophils Percent Auto 41.1 % (50-75); Platelet Count 202 X10^3/uL (150-400); Red Blood Cell Count 3.92 X10^6/uL (4.0-5.2); Red Cell Distribution Width 13.8 % (11.6-14.8); White Blood Cell Count 6.2 X10^3/uL (4.5-11.0)
[2022-03-20 14:05] LABS: BUN Creatinine Ratio 26.3 (6-22); Blood Urea Nitrogen 21 mg/dL (7-17); Calcium 9.6 mg/dL (8.4-10.2); Carbon Dioxide 29 mmol/L (22-32); Chloride 101 mmol/L (98-107); Estimated Glomerular Filt Rate > 60 mL/min (>60); Glucose 101 mg/dL (80-110); HEMOLYSIS < 15 (0-50); Potassium 4.4 mmol/L (3.4-5.1); Sodium 138 mmol/L (137-145)
== END ==
PROVIDERS: PCP Physician Assistant; Referring Provider Orthopaedic Surgery Foot and Ankle Surgery; Visit Provider Orthopaedic Surgery Foot and Ankle Surgery
DX: Z01.812 Encounter for preprocedural laboratory examination (principal); M25.562 Pain in left knee
CPT/HCPCS: 36415; 80048; 85025

== ENCOUNTER → 2022-04-02 10:33 | Outpatient (CLI) | payer OTHER, SELFPAY ==
[2021-11-02 18:13] VITALS: BMI 27.0
[2022-04-02 11:30] LABS: COVID19 -Nasal RAPID Negative (Negative)
== END ==
PROVIDERS: PCP Family Medicine; Referring Provider Orthopaedic Surgery Foot and Ankle Surgery; Visit Provider Orthopaedic Surgery Foot and Ankle Surgery
DX: Z20.822 Contact with and (suspected) exposure to COVID-19 (principal)
CPT/HCPCS: 87635; C9803

== ENCOUNTER → 2022-04-04 09:36 | Outpatient (CLI) | payer OTHER, SELFPAY ==
[2021-11-02 18:13] VITALS: BMI 27.0
[2022-04-04 10:39] LABS: Add Manual Diff / Slide Review NO; Basophils Absolute Auto 0 /uL (0-100); Basophils Percent Auto 0.3 % (0-2); Eosinophils Absolute Auto 100 /uL (0-450); Eosinophils Percent Auto 1.9 % (2-4); Hemoglobin 12.9 g/dL (12.0-16.0); Lymphocytes Absolute Auto 3200 /uL (1100-4500); Mean Corpuscular Hemoglobin 33.2 PG (26-34); Mean Corpuscular Volume 97.7 fL (80-100); Monocytes Absolute Auto 600 /uL (0-900); Monocytes Percent Auto 10.5 % (3-14); Neutrophils Absolute Auto 2100 /uL (1500-7000); Neutrophils Percent Auto 34.3 % (50-75); Platelet Count 196 X10^3/uL (150-400); Red Blood Cell Count 3.88 X10^6/uL (4.0-5.2); Red Cell Distribution Width 14.6 % (11.6-14.8); White Blood Cell Count 6.1 X10^3/uL (4.5-11.0)
[2022-04-04 10:53] LABS: Hemoglobin A1C% w Est Avg Glu 5.6 % (4.0-6.0)
[2022-04-04 11:12] LABS: Alanine Aminotransferase 25 IU/L (<35); Albumin 3.9 g/dL (3.5-5.0); Albumin Globulin Ratio 1.2 (1.0-2.8); Alkaline Phosphatase 86 U/L (38-126); Aspartate Aminotransferase 32 IU/L (14-36); BUN Creatinine Ratio 27.6 (6-22); Bilirubin Total 0.6 mg/dL (0.2-1.3); Blood Urea Nitrogen 21 mg/dL (7-17); Calcium 9.5 mg/dL (8.4-10.2); Carbon Dioxide 29 mmol/L (22-32); Chloride 101 mmol/L (98-107); Cholesterol 186 mg/dL (140-199); Estimated Glomerular Filt Rate > 60 mL/min (>60); Globulin 3.2 g/dL (1.7-4.1); Glucose 107 mg/dL (80-110); HDL Cholesterol 97 mg/dL (40-60); HEMOLYSIS < 15 (0-50); LDL Cholesterol Calculated 69 mg/dL (<100); Potassium 4.6 mmol/L (3.4-5.1); Sodium 138 mmol/L (137-145); Total Protein 7.1 g/dL (6.3-8.2); Triglycerides 99 mg/dL (35-150)
[2022-04-04 11:16] LABS: Microalbumin Urine Random < 0.6 mg/dL (0-1.6)
[2022-04-04 11:25] LABS: Vitamin D 25 Hydroxy (D3) 21.9 ng/mL (30.0-100.0)
[2022-04-04 12:15] LABS: Folate 6.9 ng/mL (2.76-20.0); Vitamin B12 290 pg/mL (239-931)
== END ==
PROVIDERS: PCP Family Medicine; Referring Provider Family Medicine; Visit Provider Family Medicine
DX: E78.2 Mixed hyperlipidemia (principal); R79.9 Abnormal finding of blood chemistry, unspecified; Z79.899 Other long term (current) drug therapy; I10 Essential (primary) hypertension; E87.5 Hyperkalemia; R73.9 Hyperglycemia, unspecified; E56.9 Vitamin deficiency, unspecified
CPT/HCPCS: 36415; 80053; 80061; 82043; 82306; 82570; 82607; 82746; 83036; 85025

== ENCOUNTER 2022-04-05 09:01 | Day surgery (SDC) | payer OTHER, SELFPAY ==
[2021-11-02 18:13] VITALS: BMI 27.0
[2022-03-26 08:36] VITALS: BMI 26.0
[2022-04-05] VITALS (10 sets, daily range): BP systolic 137–154; BP diastolic 64–84; PULSE 62–77; RESP 10–22; TEMP 36.1–36.8; O2SAT 96–100; BMI 24.3
[2022-04-05] MEDS: LACTATED RINGERS 1,000 ML 42 ML IV (09:51)
[2022-04-05] MEDS: ACETAMINOPHEN 325 MG TABLET 975 MG PO (09:55)
[2022-04-05] MEDS: PREGABALIN 75 MG CAPSULE PO (09:55)
[2022-04-05] MEDS: CELECOXIB 200 MG CAPSULE PO (09:56)
--- NOTE | 2022-04-05 11:28 | PM.PREOP ---
Pre-operative Note COVID-19 COVID-19 status: Negative Interval Note History & Physical reviewed/Exam performed by Physician: Yes Changes to H&P: No
--- NOTE | 2022-04-05 11:49 | SUR.OPER ---
Supine on padded OR bed. Pillow under head, arms secured on padded armboards <90 degree abduction. Safety belt across torso. Non-operative leg secured with tape over blanket over lower leg. Operative leg secured in DeMayo positioner. Foam padded brace at thigh of operative leg.
[2022-04-05] MEDS: TRANEXAMIC ACID 1,000 MG VIAL 1000 MG INJ ×2 (12:20→13:57)
[2022-04-05] MEDS: CLINDAMYCIN 900 MG/50 ML PIGGYBACK 50 MG IV (12:20)
[2022-04-05] MEDS: BUPIVACAINE LIPOSOME 266 MG/20 ML VIAL INJ ×2 (12:30→12:31)
[2022-04-05] MEDS: BUPIVACAINE 0.5% W/ EPI (PF) 30 ML VIAL INJ (12:32)
[2022-04-05] MEDS: LACTATED RINGERS 1,000 ML 120 ML IV (12:39)
--- NOTE | 2022-04-05 14:21 | DI.RAD.S_ITS ---
PROCEDURE: XR KNEE LT 1TO2V INDICATIONS: postop pacu L TKA TECHNIQUE: 2 views of the knee acquired. COMPARISON: [facility], CR, XR KNEE ARTHRITIC SERIES BI, 07/16/2021, 11:19. [facility], CR, XR KNEE RT 1TO2V, 11/02/2021, 15:44. FINDINGS: Bones: Patient is status post knee joint arthroplasty. Hardware components are in expected positions. Visualized bony structures are intact. Soft tissues: Overlying postoperative changes are noted. IMPRESSION: The status post left knee arthroplasty with expected postoperative findings. Approved by: Murali Michele M.D. on 04/05/2022 at 15:31
--- NOTE | 2022-04-05 14:28 | P.OP_ITS ---
Operative Date/Time/Diagnoses Date of procedure: 04/05/22 Time of procedure: 12:20 Pre-op diagnosis: Left knee arthritis M17.12 Post-op diagnosis: same Procedure & Clinicians Procedure: Total knee arthroplasty left CPT code 17010 Same procedure as scheduled: Yes Indications: The patient is an 81-year-old female with end-stage left knee arthritis that is [id number]. They failed conservative treatment with activity modification, injections, physical therapy and bracing. Patient has been indicated for total knee replacement. Had a right knee replacement about 6 months ago is doing well from that. Desires the same on the left side. The risks benefits and alternatives to procedure have been discussed with the patient they have been given the opportunity to ask questions. The risks of surgery include but are not limited to infection, nonunion, malunion, fracture, loosening, persistence of pain, damage to nerves and blood vessels, need for additional procedures, blood clot, pulmonary embolism, cardiopulmonary complications and . The patient expressed a thorough understanding of the risks and benefits of surgery and has elected to proceed. Consent was signed in the office.. During the operation, the services of a physician neurosurgical physician assistant were medically indicated and necessary to provide the exposure of the operative site for the surgical procedure and to maintain the limb in a proper position to carry out the operation safely and efficiently. Without a qualified assistant grocery being present this would extended the operative procedure and made the procedure technically more difficult to perform. Surgeon: Ada Dangelo Welcome Hostess: Mirella Mccormick Anesthesia Type: General and Local Operative Notes Findings: Advanced, end-stage arthritis left knee with calcified menisci and synovitis Closure Type: primary Specimen(s): none sent Prosthetic devices, grafts, tissues, transplants, or devices: Mauricio and nephew Journey 2 BCS Femur size 3 cobalt chromium (CoCr) left Tibia Journey size 2 left Polyethylene left size 1-2-----10 mm journey 2 Patella 32 x 7.5 round Almita 2 resurfacing component Estimated Blood Loss (mL): 50 Blood products transfused: none Tourniquet time (min): 94 Procedure in detail: Patient was seen in the preoperative area where the patient and site of surgery were identified in the operative knee was marked informed consent confirmed. This was the left knee. Patient received the appropriate preoperative antibiotics this was 900 of clindamycin due to the penicillin allergy, severe. And other preoperative medications and was taken to the operating room placed on operating table in the supine position. The operative extremity was then prepped and draped in the standard sterile fashion with a nonsterile tourniquet high on the thigh. Patient was placed on the green foam bolsters. A lateral post was placed at the level of the proximal thigh /trochanter area as a lateral post. Formal time-out procedure was performed confirming the patient's side and site of surgery and administration of appropriate preoperative antibiotics and implants were in the room accounted for. All were in agreement. Patient rec eived a preoperative dose of tranexamic acid and then a 2nd dose at tourniquet release Patient was prepped and draped in the standard sterile fashion and the foot was placed into the [facility] leg severino. This was taken into high flexion and the incision was marked out over the anterior knee to the level of the medial tubercle tubercle. The Esmarch was then used for exsanguination and the tourniq uet was inflated to 250 mmHg. Was made through the skin and subcutaneous tissue in high flexion this was then brought down into 30? of flexion for the medial parapatellar arthrotomy. A marker pen was used to norma the arthrotomy site for later repair. Joint fluid was evacuated. The anterior osteophytes and soft tissues were removed. Routine medial release was initially made along the medial proximal tibia with Bovie. The patella was on quite a bit of tension on attempted eversion so the quad incision was lengthened to relax it and then the patella was 1st cut using the saw sized and prepped and then subluxed throughout the case and protected. The leg was then taken into extension and the patella was everted and the patella was cut to accommodate the patellar button. This was sized to a 32 mm button for a 7.5 mm thickness to recreate the original dimensions of the patella. The patella itself was marginal and measured at 22 similar to the contralateral side did and was cut measured to maintain at least 12 mm thickness. Poly was removed and the protector replaced and the patella was subluxed and the knee was taken back up into flexion and attention was returned to the femur. Then the rotational landmarks of Whitesides line and the trans epicondylar axis were marked on the femur with electrocautery. Then the intramedullary guide for the femur was created. The distal femoral cut was made in 6? of valgus using the intramedullary guide with the cut setting on 0+ as the patient did not have a preoperative flexion contracture. The ACL and PCL released. The proximal tibia was then cut using the intramedullary guide, taking 9 mm off the less involved side this was the lateral plateau. The Yifan wing was used to check the slope through the guide. Second pass was made through the tibial cut guide with the saw after the cut tibia was removed plane down about 1 more mm and further smooth then the resection surface. In extension remainders of the medial and lateral menisci were removed. The extension flexion gaps were then checked using both the flexion extension blocks. And was selected for a 10 mm poly. the femur was then sized and the rotation set using the posterior condyle referencing 3? of external rotation. Of note the medial condyle of the femur and both the medial side of the tibial plateau were quite diminutive. The femur measured a size 3. Cut block was then placed and the anterior, posterior and chamfer cuts were then made. The posterior osteophytes and soft tissues were then removed. Then in extension the posterior capsule was injected with a mixture of 40 mL of 0.25% Marcaine and 20 mL of Exparel care to avoid excessive injection posterior laterally. The remainder of this was saved for the capsule and subcutaneous tissue and placed during cement curing. Attention was then returned to the tibia and this was prepared with the rotation set by the extramedullary guide. Lined up with the tibial crest and the 2nd toe. The tibial trial best fit was a size 2 tibial tray. This Was then pinned in place and the trial femoral components were placed. Then the intercondylar notch was cut through the femoral trial to create the box this was done with the distal than the proximal drill and then the box cut distally and then proximally. Next the insert was placed and the trial poly placed. This was stable in flexion and extension and there was a 0-135 degree range of motion. The tibia was then finished with the drill and flange cuts and then this was removed. All trials were removed. The wound and bone was irrigated with pulsatile lavage. This was then dried with a sponge. The components were verified and opened and the cement was mixed. Cement was applied to the components and then to the bone then the tibia was cemented in place 1st followed by the femur then the patella. Excess cement was removed. With care looking around the back of the knee. Remainder of the injection was injected around the capsule. trial poly was placed back in the leg was placed into extension for the patellar cementing. After this was cured approximately 15 minutes later and the dilute Betadine solution was placed for at least 3 minutes in the wound this was then irrigated out and the final poly was placed. This was a 10 mm poly. The tourniquet was released hemostasis was achieved. Final 1 g of tranexamic acid was given IV at the time of tourniquet release. The capsule was closed with 1. Ethibond suture. Subcutaneous layer was closed with 3-0 Vicryl suture. Skin was closed with a running V lock suture Stratafix Monocryl type suture and Dermabond. aquacell dressing was placed. An Kobi wrap was applied. Anesthetic was terminated the patient was woken from anesthesia and taken to recovery room in good condition. There no immediate complications from this procedure. The patient will be maintained on a standard total knee replacement protocol with weight-bearing as tolerated. Complications: none Post-operative Condition: stable Disposition: PACU Plan for aftercare: Weightbear as tolerated. Already has pain medications. Will discharge from postoperative unit when medically able. Will work with physical therapy as an outpatient. [facility]-up [facility] 2 weeks [facility] will resume aspirin b.i.d. jennifer. Has prescriptions for oxycodone and Vistaril.
--- NOTE | 2022-04-05 14:44 | SUR.PHASEI ---
Received to PACU after general anesthesia. Oral airway in place. No further airway assistance required. Report from KRISSY Mcdaniel and Dr Sadler.
--- NOTE | 2022-04-05 15:44 | SUR.PHASEII ---
Left hand and lower forearm with what appears to be red pettachai. 2+ radial pulse. Strong hand grasp. Denies numbness, tingling, or pain. BP cuff moved to right arm. Arm elevated on pillow.
--- NOTE | 2022-04-05 15:48 | SUR.PHASEII ---
Started on incentive spirometry. Up to 1000ml, weak effort.
== END 2022-04-05 16:30 | disposition home or self-care (01) ==
LOC: OR 09:05 → AC 09:05
PROVIDERS: PCP Family Medicine; Referring Provider Family Medicine; Visit Provider Orthopaedic Surgery Foot and Ankle Surgery
PROC: 0SRD0JZ Replacement of Left Knee Joint with Synthetic Substitute, Open Approach (ICD-10-PCS; CPT 27447; principal; 2022-04-05 11:15)
DX: M17.12 Unilateral primary osteoarthritis, left knee (principal); M65.9 Synovitis and tenosynovitis, unspecified; I10 Essential (primary) hypertension; E78.5 Hyperlipidemia, unspecified
CPT/HCPCS: 27447; 73560; C1776; C1713; C9290; J1100; J1170; J2405; J2704; J3010

== ENCOUNTER → 2022-05-07 09:56 | Outpatient (CLI) | payer OTHER, SELFPAY ==
[2021-11-02 18:13] VITALS: BMI 27.0
[2022-05-07 11:06] LABS: Alanine Aminotransferase 14 IU/L (<35); Albumin 3.8 g/dL (3.5-5.0); Albumin Globulin Ratio 1.2 (1.0-2.8); Alkaline Phosphatase 81 U/L (38-126); Aspartate Aminotransferase 24 IU/L (14-36); BUN Creatinine Ratio 28.2 (6-22); Bilirubin Total 0.5 mg/dL (0.2-1.3); Blood Urea Nitrogen 22 mg/dL (7-17); Calcium 9.2 mg/dL (8.4-10.2); Carbon Dioxide 26 mmol/L (22-32); Chloride 106 mmol/L (98-107); Cholesterol 153 mg/dL (140-199); Estimated Glomerular Filt Rate > 60 mL/min (>60); Globulin 3.1 g/dL (1.7-4.1); Glucose 114 mg/dL (80-110); HDL Cholesterol 72 mg/dL (40-60); HEMOLYSIS < 15 (0-50); LDL Cholesterol Calculated 61 mg/dL (<100); Potassium 4.3 mmol/L (3.4-5.1); Sodium 141 mmol/L (137-145); Total Protein 6.9 g/dL (6.3-8.2); Triglycerides 99 mg/dL (35-150)
== END ==
PROVIDERS: PCP Family Medicine; Referring Provider Specialist; Visit Provider Specialist
DX: I47.1 Supraventricular tachycardia (principal); E78.00 Pure hypercholesterolemia, unspecified; R00.2 Palpitations
CPT/HCPCS: 36415; 80053; 80061; 83735

== ENCOUNTER → 2022-05-13 13:24 | Outpatient (CLI) | payer OTHER, SELFPAY ==
[2021-11-02 18:13] VITALS: BMI 27.0
== END ==
PROVIDERS: PCP Family Medicine; Referring Provider Family Medicine; Visit Provider Family Medicine
DX: Z78.0 Asymptomatic menopausal state (principal); E56.9 Vitamin deficiency, unspecified; R73.9 Hyperglycemia, unspecified; Z13.820 Encounter for screening for osteoporosis; M85.852 Other specified disorders of bone density and structure, left thigh; Z92.23 Personal history of estrogen therapy; Z90.710 Acquired absence of both cervix and uterus
CPT/HCPCS: 77080

== ENCOUNTER → 2022-05-16 12:14 | Outpatient (CLI) | payer OTHER, SELFPAY ==
[2021-11-02 18:13] VITALS: BMI 27.0
--- NOTE | 2022-05-16 | DI.ECHO.S_ITS ---
[facility] +---------+ [facility] +---------+ : : [address] : : : : [id number] : : : : Phone: [phone]+ Echocardiogram Report + + :Name: NATALIE PEGUERO Study Date: 05/16/2022 Height: 62 in : :[facility] ReadingLocation: Weight: 131 lb : : Gender: Female BSA: 1.6 m2 : :: 1940 Age: 81 yrs BP: 120/67 mmHg: :Reason For Study: OTHER SPECIFIED DISORDERS OF ARTERIES AND : :ARTERIOLS. : :Ordering Physician: DIMITRI, : :RAEN Performed By: Fe Murphy : :Referring: AREN MOSLEY : + + Interpretation Summary Left ventricular systolic function is normal scratched with an ejection fraction of 60 to 65% and appears unchanged from the previous study. Left ventricular size and wall thickness remain normal. There is now some evidence for a possible pseudonormal diastolic filling pattern, possibly reflecting increased filling pressures, higher compared to previous study, although with only modest higher E/E' values. The right ventricle remains normal and unchanged. Right ventricular systolic pressure is estimated at 33 mmHg with a CVP of 3 mmHg and is likely minimally higher compared to previous exam. There is moderate left atrial enlargement with normal right atrial size but both have increased in size since the previous study. There is moderate mitral regurgitation that is more prominent compared to the previous study and mild tricuspid regurgitation that appears unchanged. There is no other significant valvular abnormality. The ascending aorta is mildly enlarged at 3.7 cm, identical to the previous exam. The aortic arch is mild to moderately enlarged at 3.5 cm. There is a probable prominent hepatic cyst measuring 7.4 x 9.7 cm that was not evident on the previous study. Consider formal abdominal ultrasound if clinically indicated. Procedure: A two-dimensional transthoracic echocardiogram with color flow and Doppler was performed. The study quality was technically adequate. Comparison is made with the echocardiogram of 09/25/2016. The patient was in sinus rhythm with heart rates between 58-65 bpm during the exam. Left Ventricle: The left ventricle appears normal in size, wall thickness, and systolic function without any focal wall motion abnormalities. The estimated left ventricular end diastolic volume is 61 ml. The ejection fraction is estimated to be 60-65%. This is unchanged compared to the previous study. Diastolic parameters suggest a pseudonormalization pattern, consistent with probable elevated filling pressures. This is possibly slightly higher compared to the previous study. Right Ventricle: The right ventricle is normal in size and function. This is unchanged compared to the previous study. Atria: The left atrium is moderately dilated. Both atria have significantly increased in size since the prior echo exam. Right atrial size is normal. There is no Doppler evidence for an interatrial shunt. Mitral Valve: There is moderate mitral annular calcification. The mitral valve leaflets appear mildly thickened, but open well. The mitral valve leaflets are slightly calcified. There is moderate mitral regurgitation. This is more prominent compared to the previous study. Aortic Valve: The aortic valve is trileaflet. The aortic valve is slightly calcified. The aortic valve opens well. There is no aortic valve stenosis. There is trace aortic regurgitation. Tricuspid Valve: The tricuspid valve is normal in structure and function. There is mild tricuspid regurgitation. This is unchanged compared to the previous study. The right ventricular systolic pressure is estimated to be at least 33 mmHg based on an estimated right atrial pressure of 3 mm Hg. This is possibly minimally higher compared to the previous study. Pulmonic Valve: The pulmonic valve leaflets are thin and pliable; valve motion is normal. There is trace pulmonic regurgitation. Great Vessels: The aortic root is normal size. The ascending aorta is mildly enlarged. This is unchanged compared to the previous study. The aortic arch is mild-moderately enlarged. The IVC is of normal diameter and collapses greater than 50% with a sniff. This suggests a low right atrial pressure of 3 mm Hg. Pericardium/ Pleura There is no pericardial effusion. There is no pleural effusion. There is a prominent cystic structure in the liver, consistent with a hepatic cyst, measuring 7.4 x 9.7 cm that was not evident on the previous study. MMode/2D Measurements & Calculations LVIDd: 4.1 cm LVOT diam: 2.0 cm LVIDs: 2.6 cm Ao root diam: 3.6 cm FS: 36.1 % asc Aorta Diam: 3.7 cm EPSS: 0.75 cm Ao Arch Diam (Prox Trans): 3.5 cm IVSd: 0.84 cm LVPWd: 0.76 cm LV bailey. diameter/BSA (cm/m^2): 2.6 LV sys. diameter/BSA (cm/m^2): 1.6 LA A2 area: 22.6 cm2 RA long axis: 5.1 cm LA A4 area: 21.5 cm2 RA area: 14.4 cm2 LA length (vol): 5.9 cm RA vol: 34.6 ml LA vol: 70.1 ml RA : 21.7 ml/m2 LA vol index: 43.9 ml/m2 IVC diam: 1.5 cm RVD1 (basal): 3.2 cm RVD2 (mid): 2.2 cm TAPSE: 1.7 cm Doppler Measurements & Calculations Ao V2 max: 101.1 cm/sec LVOT Max Wei: 75.3 cm/sec Ao V2 mean: 69.2 cm/sec LV V1 max P.3 mmHg Ao max P.1 mmHg LV V1 VTI: 17.9 cm Ao mean P.2 mmHg CARMINA(I,D): 2.3 cm2 Ao V2 VTI: 23.4 cm CARMINA(V,D): 2.2 cm2 sev ratio: 0.77 CARMINA indexed to BSA (cm^2/m^2): 1.4 MV E max wei: 80.5 cm/sec TR max wei: 275.1 cm/sec MV A max wei: 71.1 cm/sec TR max P.3 mmHg MV E/A: 1.1 PA V2 max: 84.2 cm/sec Med Peak E' Wei: 4.2 cm/sec PA V2 mean: 57.2 cm/sec E/E' med: 19.0 PA mean P.5 mmHg Lat Peak E' Wei: 6.6 cm/sec PA pr(Accel): 29.3 mmHg E/E' lat: 12.1 E/e' average: 15.6 MV dec time: 0.23 sec SV(LVOT): 54.1 ml Reading Physician:02:41 PM
== END ==
PROVIDERS: PCP Family Medicine; Referring Provider Specialist; Visit Provider Physician Assistant Medical
DX: I08.1 Rheumatic disorders of both mitral and tricuspid valves (principal); I77.89 Other specified disorders of arteries and arterioles
CPT/HCPCS: 93306

== ENCOUNTER → 2022-09-25 10:42 | Outpatient (CLI) | payer OTHER, SELFPAY ==
[2021-11-02 18:13] VITALS: BMI 27.0
[2022-09-25 14:03] LABS: Thyroid Stimulating Hormone 2.54 uIU/mL (0.47-4.68)
[2022-09-25 16:26] LABS: Vitamin D 25 Hydroxy (D3) 36.9 ng/mL (30.0-100.0)
== END ==
PROVIDERS: PCP Nurse Practitioner Family; Referring Provider Nurse Practitioner Family; Visit Provider Nurse Practitioner Family
DX: G47.00 Insomnia, unspecified (principal); E55.9 Vitamin D deficiency, unspecified
CPT/HCPCS: 36415; 82306; 84443

== ENCOUNTER → 2022-12-31 11:42 | Outpatient (CLI) | payer OTHER, SELFPAY ==
[2021-11-02 18:13] VITALS: BMI 27.0
[2023-01-02 10:07] LABS: Cholesterol, Total 190 mg/dL (100-199); HDL-Cholesterol 95 mg/dL (>39); HDL-Particle (Total) 42.8 umol/L (>=30.5); LDL Particle 769 nmol/L (<1000); LDL-Cholsterol 82 mg/dL (0-99); LP-IR Score 30 (<=45); Small LDL- Particle <90 nmol/L (<=527); Triglycerides 74 mg/dL (0-149)
== END ==
PROVIDERS: PCP Nurse Practitioner Family; Referring Provider Specialist; Visit Provider Specialist
DX: E78.00 Pure hypercholesterolemia, unspecified (principal)
CPT/HCPCS: 36415; 80061; 83704

== ENCOUNTER → 2023-01-10 08:59 | Outpatient (CLI) | payer OTHER, SELFPAY ==
[2021-11-02 18:13] VITALS: BMI 27.0
[2023-01-10 10:19] LABS: Alanine Aminotransferase 19 IU/L (<35); Albumin 3.8 g/dL (3.5-5.0); Albumin Globulin Ratio 1.4 (1.0-2.8); Alkaline Phosphatase 58 U/L (38-126); Aspartate Aminotransferase 24 IU/L (14-36); BUN Creatinine Ratio 29.2 (6-22); Bilirubin Total 0.5 mg/dL (0.2-1.3); Blood Urea Nitrogen 21 mg/dL (7-17); Calcium 9.8 mg/dL (8.4-10.2); Carbon Dioxide 32 mmol/L (22-32); Chloride 102 mmol/L (98-107); Estimated Glomerular Filt Rate > 60 mL/min (>60); Globulin 2.8 g/dL (1.7-4.1); Glucose 101 mg/dL (80-110); HEMOLYSIS < 15 (0-50); Magnesium 2.1 mg/dL (1.6-2.3); Potassium 4.5 mmol/L (3.4-5.1); Sodium 138 mmol/L (137-145); Total Protein 6.6 g/dL (6.3-8.2)
== END ==
PROVIDERS: PCP Nurse Practitioner Family; Referring Provider Specialist; Visit Provider Specialist
DX: I47.10 Supraventricular tachycardia, unspecified (principal); E78.00 Pure hypercholesterolemia, unspecified
CPT/HCPCS: 36415; 80053; 83735

== ENCOUNTER → 2023-05-20 14:08 | Outpatient (CLI) | payer OTHER, SELFPAY ==
[2021-11-02 18:13] VITALS: BMI 27.0
[2023-05-20 14:55] LABS: Add Manual Diff / Slide Review NO; Basophils Absolute Auto 0 /uL (0-100); Basophils Percent Auto 0.3 % (0-2); Eosinophils Absolute Auto 100 /uL (0-450); Eosinophils Percent Auto 1.2 % (2-4); Hematocrit 37.5 % (36-46); Hemoglobin 12.8 g/dL (12.0-16.0); Lymphocytes Absolute Auto 2100 /uL (1100-4500); Lymphocytes Percent Auto 39.5 % (25-40); Mean Corpuscular Volume 99.8 fL (80-100); Monocytes Absolute Auto 500 /uL (0-900); Monocytes Percent Auto 8.6 % (3-14); Neutrophils Absolute Auto 2700 /uL (1500-7000); Neutrophils Percent Auto 50.4 % (50-75); Platelet Count 222 X10^3/uL (150-400); Red Blood Cell Count 3.76 X10^6/uL (4.0-5.2); Red Cell Distribution Width 12.3 % (11.6-14.8); White Blood Cell Count 5.3 X10^3/uL (4.5-11.0)
[2023-05-20 15:08] LABS: Alanine Aminotransferase 19 IU/L (<35); Albumin 4.3 g/dL (3.5-5.0); Albumin Globulin Ratio 1.3 (1.0-2.8); Alkaline Phosphatase 83 U/L (38-126); Aspartate Aminotransferase 35 IU/L (14-36); BUN Creatinine Ratio 30.4 (6-22); Bilirubin Total 0.6 mg/dL (0.2-1.3); Blood Urea Nitrogen 21 mg/dL (7-17); Calcium 9.8 mg/dL (8.4-10.2); Carbon Dioxide 27 mmol/L (22-32); Chloride 102 mmol/L (98-107); Estimated Glomerular Filt Rate > 60 mL/min (>60); Globulin 3.4 g/dL (1.7-4.1); Glucose 103 mg/dL (80-110); HEMOLYSIS < 15 (0-50); Sodium 138 mmol/L (137-145); Total Protein 7.7 g/dL (6.3-8.2)
[2023-05-20 16:11] LABS: Folate 11.1 ng/mL (2.76-20.0); Vitamin B12 756 pg/mL (239-931)
[2023-05-20 17:02] LABS: Vitamin D 25 Hydroxy (D3) 31.2 ng/mL (30.0-100.0)
[2023-05-20 17:44] LABS: TSH w/ Reflex to FT4 1.96 uIU/mL (0.47-4.68); Thyroid Stimulating Hormone 1.96 uIU/mL (0.47-4.68)
[2023-05-22 05:06] LABS: Cholesterol HDL Ratio 1.8 ratio (0.0-4.4); Cholesterol,Total 175 mg/dL (100-199); HDL Cholesterol 96 mg/dL (>39); LDL Cholesterol Cal 62 mg/dL (0-99); Triglycerides 95 mg/dL (0-149); VLDL Cholesterol Cal 17 mg/dL (5-40)
== END ==
PROVIDERS: PCP Nurse Practitioner Family; Referring Provider Nurse Practitioner Family; Visit Provider Nurse Practitioner Family
DX: G47.00 Insomnia, unspecified (principal); E55.9 Vitamin D deficiency, unspecified; E78.5 Hyperlipidemia, unspecified; E53.8 Deficiency of other specified B group vitamins
CPT/HCPCS: 36415; 80053; 80061; 82306; 82607; 82746; 84443; 85025

== ENCOUNTER → 2023-09-12 10:14 | Outpatient (CLI) | payer OTHER, SELFPAY ==
[2021-11-02 18:13] VITALS: BMI 27.0
[2023-09-12 11:19] LABS: Alanine Aminotransferase 18 IU/L (<35); Albumin 3.8 g/dL (3.5-5.0); Albumin Globulin Ratio 1.5 (1.0-2.8); Alkaline Phosphatase 72 U/L (38-126); Aspartate Aminotransferase 26 IU/L (14-36); BUN Creatinine Ratio 28.9 (6-22); Bilirubin Total 0.6 mg/dL (0.2-1.3); Blood Urea Nitrogen 22 mg/dL (7-17); Carbon Dioxide 29 mmol/L (22-32); Chloride 107 mmol/L (98-107); Estimated Glomerular Filt Rate > 60 mL/min (>60); Globulin 2.6 g/dL (1.7-4.1); Glucose 120 mg/dL (80-110); HEMOLYSIS < 15 (0-50); Magnesium 2.2 mg/dL (1.6-2.3); Potassium 4.1 mmol/L (3.4-5.1); Sodium 140 mmol/L (137-145); Total Protein 6.4 g/dL (6.3-8.2)
[2023-09-16 07:22] LABS: Cholesterol, Total 165 mg/dL (100-199); HDL-Cholesterol 77 mg/dL (>39); HDL-Particle (Total) 40.4 umol/L (>=30.5); Historical Reading Comment: (.); LDL Particle 627 nmol/L (<1000); LDL Size 21.3 nm (>20.5); LDL-Cholsterol 70 mg/dL (0-99); LP-IR Score <25 (<=45); Small LDL- Particle <90 nmol/L (<=527); Triglycerides 102 mg/dL (0-149)
== END ==
LOC: LAB 10:15
PROVIDERS: PCP Nurse Practitioner Family; Referring Provider Specialist; Visit Provider Specialist
DX: E78.00 Pure hypercholesterolemia, unspecified (principal); I47.10 Supraventricular tachycardia, unspecified; R00.2 Palpitations
CPT/HCPCS: 36415; 80053; 80061; 83704; 83735

== ENCOUNTER → 2023-10-03 09:13 | Outpatient (CLI) | payer OTHER, SELFPAY ==
[2021-11-02 18:13] VITALS: BMI 27.0
[2023-10-03 11:12] LABS: Vitamin D 25 Hydroxy (D3) 39.4 ng/mL (30.0-100.0)
[2023-10-03 11:40] LABS: Folate 7.7 ng/mL (2.76-20.0); Vitamin B12 554 pg/mL (239-931)
== END ==
PROVIDERS: PCP Nurse Practitioner Family; Referring Provider Nurse Practitioner Family; Visit Provider Nurse Practitioner Family
DX: E55.9 Vitamin D deficiency, unspecified (principal); E53.8 Deficiency of other specified B group vitamins
CPT/HCPCS: 36415; 82306; 82607; 82746

== ENCOUNTER 2024-05-22 12:15 | Emergency (ER) | payer MEDICARE, SELFPAY ==
[2021-11-02 18:13] VITALS: BMI 27.0
[2024-05-22 12:24] VITALS: BP 133/75; PULSE 92; RESP 18; TEMP 36.9; O2SAT 94; BMI 25.4
--- NOTE | 2024-05-22 12:33 | DI.RAD.S_ITS ---
PROCEDURE: XR SHOULDER LT MIN 2V INDICATIONS: fall TECHNIQUE: 3 views of the shoulder were acquired. COMPARISON: [facility], CT, CT HEAD/BRAIN WO [facility], 05/22/2024, 12:42. [facility], CT, CT CERVICAL SPINE WO [facility], 05/22/2024, 12:42. FINDINGS: Bones: No fractures or dislocations. No suspicious bony lesions. Visualized ribs appear intact. Generalized degenerative changes are seen, including involving the acromioclavicular joint Soft tissues: No suspicious soft tissue calcifications. IMPRESSION: No acute bony abnormality is seen on these plain films. Dictated by: Morteza Brown M.D. on 05/22/2024 at 12:04 Approved by: Morteza Brown M.D. on 05/22/2024 at 12:05
--- NOTE | 2024-05-22 12:33 | DI.CT.S_ITS ---
PROCEDURE: CT HEAD/BRAIN WO CON INDICATIONS: fall TECHNIQUE: Noncontrast 4.5 mm thick angled axial sections acquired from the foramen magnum to the vertex, with coronal and sagittal reformats. For radiation dose reduction, the following was used: automated exposure control, adjustment of mA and/or kV according to patient size. COMPARISON: [facility], CT, CT CERVICAL SPINE WO [facility], 05/22/2024, 12:42. [facility], CR, XR SHOULDER LT MIN 2V, 05/22/2024, 12:30. FINDINGS: Image quality: Diagnostic. CSF spaces: Basal cisterns are patent. No extra-axial fluid collections. The ventricles are symmetric in size and shape. Brain: No intracranial bleeds or masses. There is cerebral volume loss for age, with resultant ventricular and sulcal prominence. There are periventricular and deep white matter chronic small vessel ischemic changes. There is intracranial internal carotid artery atherosclerosis. Skull and face: Calvarium and visualized facial bones appear intact, without suspicious lesions. Sinuses: Visualized sinuses and mastoids are clear. IMPRESSION: No acute intracranial hemorrhage is seen. No acute intracranial pathology. Dictated by: Morteza Brown M.D. on 05/22/2024 at 12:07 Approved by: Morteza Brown M.D. on 05/22/2024 at 12:08
--- NOTE | 2024-05-22 12:33 | DI.CT.S_ITS ---
PROCEDURE: CT CERVICAL SPINE WO CON INDICATIONS: fall TECHNIQUE: Noncontrast 3 mm thick sections acquired from the skull base to the T4 level. Sagittal and coronal reformats were then constructed. For radiation dose reduction, the following was used: automated exposure control, adjustment of mA and/or kV according to patient size. COMPARISON: [facility], CR, XR SHOULDER LT MIN 2V, 05/22/2024, 12:30. [facility], CT, CT HEAD/BRAIN WO CON, 05/22/2024, 12:42. (Additional prior imaging is not available for review from the archive at the time of this dictation.) FINDINGS: Image quality: This examination is somewhat limited by quantum mottle artifact. Bones: No fractures or dislocations. Visualized superior ribs are intact. Focal degenerative change is seen involving the C1-C2 interface anteriorly. There is at least moderate disc space narrowing seen at C5-C6 and C6-C7, with associated endplate irregularity and sclerosis. Multiple levels of facet hypertrophy can be seen. Soft tissues: Prevertebral soft tissues are normal in thickness. No paravertebral hematomas. No apical pneumothoraces. IMPRESSION: No displaced fracture or traumatic subluxation. Multiple levels of cervical spine degenerative change can be seen, which are worst inferiorly. Dictated by: Morteza Brown M.D. on 05/22/2024 at 12:05 Approved by: Morteza Brown M.D. on 05/22/2024 at 12:07
--- NOTE | 2024-05-22 13:06 | ED.FALL ---
HPI - Fall <Esther Sweeney PA-C - Last Filed: 05/22/24 14:58> General Chief Complaint: Fall Stated Complaint: Multiple GLF t-5, Neck/Back/L Arm Px Time Seen by Provider: 05/22/24 12:50 History of Present Illness HPI Narrative: 83-year-old female with history of diverticulitis and arrhythmia presents with concern for 2 falls this week on Friday and Friday. With ongoing left shoulder pain and reduced mobility with neck pain on both sides and at the top of her shoulders beginning yesterday. Patient's daughter who lives across the street from her states that she has been in bed a lot more since her 2nd fall on Friday. Patient and daughter endorsed that she normally is extremely active. Patient states her 1st fall occurred on Friday evening when she was kissing her 90-year-old has been good night in bed she leaned forward and did not see an electrical cord that was there when she stepped backwards on accidentally tripped and fell to the ground landing on her left shoulder. The following day she was out in the garden and trying to push a wheelbarrow over an area where some roots were hidden below some saw dust in the again lost her balance and fell. She does not believe she lost consciousness either time. She normally does not ambulate with a cane or walker she denies feeling dizzy or lightheaded or palpitations prior to falling. She states it an average month she falls about once a month. This is the 1st time that she is felt she has had an injury from her fall. She says her left shoulder initially was extremely difficult to move and painful but over the last 6 days mobility has improved she is now able to rotate her elbow and wrist normally and use her forearm well but is still having pain in her left shoulder particularly with bringing her shoulder out to the side or raising it up higher than chest level. She denies any urinary symptoms such as urgency frequency dark urine smelly urine, denies any sharp shooting pain in her neck. Numbness or tingling of extremities recent illness, has otherwise been in her usual state of health. Patient and daughter state that patient lives with her 90-year-old and also another daughter who lives on the upper floor of her home. She has a good support system. Patient states she is tried Tylenol with no improvement last night she tried 1 of her 's muscle relaxers with no improvement (Flexeril) also tried an ibuprofen despite the fact that her staffing rn has advise her not to take this. She says none of these seemed to help. She says she only tried the Tylenol a few times throughout the week. Related Data Home Medications Medication Instructions Recorded Confirmed magnesium 200 mg tablet 250 mg PO BID ##0 05/21/17 04/05/22 atorvastatin 20 mg tablet 20 mg PO BEDTIME 10/24/21 04/05/22 metoprolol succinate 25 mg 25 mg PO BID 10/24/21 04/05/22 tablet,extended release 24 hr aspirin 81 mg capsule 81 mg PO DAILY 03/26/22 04/05/22 conjugated estrogens 0.3 mg tablet 0.3 mg PO Q OTHER DAY 03/26/22 04/05/22 (Premarin) Previous Rx's Medication Instructions Recorded acetaminophen 500 mg capsule See Rx Instructions .Route 11/03/21 .COMPLEX PRN fever or pain #90 caps baclofen 5 mg tablet 5 mg PO TID PRN muscle spasm 15 05/22/24 days #45 tabs Allergies Allergy/AdvReac Type Severity Reaction Status Date / Time Penicillins Allergy Severe almost Verified 05/22/24 12:32 reaction ofloxacin Allergy Mild rash all Verified 05/22/24 12:32 over, itchy Review of Systems <Esther Sweeney PA-C - Last Filed: 05/22/24 14:58> Review of Systems Narrative: See HPI Patient History <Esther Sweeney PA-C - Last Filed: 05/22/24 14:58> Medical History Anesthesia complication Loss of taste (11/02/21) Mild pulmonary hypertension Ascending aorta enlargement Palpitations Carpal tunnel syndrome Vertigo Diverticular disease HLD (hyperlipidemia) SVT (supraventricular tachycardia) Surgical History 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 Well-developed patient, in mild distress. HEAD: Atraumatic. Normocephalic. EYES: Pupils equal round and reactive. Extraocular motions intact. No scleral icterus. No injection or drainage. ENT: Nose without bleeding, purulent drainage. Airway patent. NECK: Trachea midline. Non tender CARDIOVASCULAR: Regular rate and rhythm without murmurs, gallops, or rubs. RESPIRATORY: Clear to auscultation. Breath sounds equal bilaterally. No wheezes, rales, or rhonchi. 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 She has reduced range of motion at the shoulder. Normal active range of motion at the elbow, wrist and fingers. Patient has pain with both active and passive abduction at the shoulder. There is tenderness with palpation about the shoulder joint. Mild soft tissue swelling present. No other edema or joint tenderness. BACK: There is midline tenderness at approximately C5 through 7. Paraspinal muscles of the cervical spine are tight. There is tenderness of the paraspinal muscles of cervical and upper thoracic spine. Trapezius muscle is tender and tight especially superiorly and on the left. Back is otherwise Nontender without deformity or crepitance. No flank tenderness. NEURO: AOx3. SKIN: No rash or erythema of visible areas Initial Vital Signs Initial Vital Signs: Vital Signs Temperature 98.5 F 05/22/24 12:24 Pulse Rate 92 H 05/22/24 12:24 Respiratory Rate 18 05/22/24 12:24 Blood Pressure 133/75 05/22/24 12:24 Pulse Oximetry 94 05/22/24 12:24 Oxygen Delivery Method Room Air 05/22/24 12:24 <Natalee Vega DO - Last Filed: 05/23/24 08:50> Initial Vital Signs Initial Vital Signs: Vital Signs Temperature 98.5 F 05/22/24 12:24 Pulse Rate 92 H 05/22/24 12:24 Respiratory Rate 18 05/22/24 12:24 Blood Pressure 133/75 05/22/24 12:24 Pulse Oximetry 94 05/22/24 12:24 Oxygen Delivery Method Room Air 05/22/24 12:24 Course <Esther Sweeney PA-C - Last Filed: 05/22/24 14:58> Orders Ordered: ED Orders 05/22/24 12:33 CT cervical spine wo con Stat CT head/brain wo con Stat XR shoulder LT min 2V Stat Vital Signs Vital signs: Vital Signs - 8 hr 05/22/24 12:24 05/22/24 14:00 Temperature 98.5 F Pulse Rate 92 H 78 Respiratory Rate 18 16 Blood Pressure 133/75 130/68 Pulse Oximetry 94 100 Oxygen Delivery Method Room Air Room Air <Natalee Vega DO - Last Filed: 05/23/24 08:50> Orders Ordered: ED Orders 05/22/24 12:33 CT cervical spine wo con Stat CT head/brain wo con Stat XR shoulder LT min 2V Stat Vital Signs Vital signs: Vital Signs - 8 hr 05/22/24 12:24 05/22/24 14:00 Temperature 98.5 F Pulse Rate 92 H 78 Respiratory Rate 18 16 Blood Pressure 133/75 130/68 Pulse Oximetry 94 100 Oxygen Delivery Method Room Air Room Air MDM - Fall <Esther Sweeney PA-C - Last Filed: 05/22/24 14:58> Differential Diagnosis Differential diagnosis: Likely other (Frequent falls, shoulder sprain/strain, cervical strain/fracture, muscle spasm) Medical Records Attestation: I reviewed the patient's medical records. Imaging Data CT scan - head: My Impression: Agree with Radiology interpretation Radiologist's Impression: [place] [address] CT Scan Report Signed Patient: Romelia Nuno MR#: [id number] : 1940 Acct:[id number] Age/Sex: 83 / F Date of Service: 05/22/24 Loc: ED Accession Number: [id number] Procedure: CT head/brain wo con Ordering Provider: Natalee Vgea D.O. PROCEDURE: CT HEAD/BRAIN WO CON INDICATIONS: fall TECHNIQUE: Noncontrast 4.5 mm thick angled axial sections acquired from the foramen magnum to the vertex, with coronal and sagittal reformats. For radiation dose reduction, the following was used: automated exposure control, adjustment of mA and/or kV according to patient size. COMPARISON: [facility], CT, CT CERVICAL SPINE WO CON, 05/22/2024, 12:42. [facility], CR, XR SHOULDER LT MIN 2V, 05/22/2024, 12:30. FINDINGS: Image quality: Diagnostic. CSF spaces: Basal cisterns are patent. No extra-axial fluid collections. The ventricles are symmetric in size and shape. Brain: No intracranial bleeds or masses. There is cerebral volume loss for age, with resultant ventricular and sulcal prominence. There are periventricular and deep white matter chronic small vessel ischemic changes. There is intracranial internal carotid artery atherosclerosis. Skull and face: Calvarium and visualized facial bones appear intact, without suspicious lesions. Sinuses: Visualized sinuses and mastoids are clear. IMPRESSION: No acute intracranial hemorrhage is seen. No acute intracranial pathology. Dictated by: Morteza Brown M.D. on 05/22/2024 at 12:07 Approved by: Morteza Brown M.D. on 05/22/2024 at 12:08 CT - cervical spine: My Impression: Agree with Radiology interpretation Radiologist's Impression: [place] [address] CT Scan Report Signed Patient: Romelia Nuno MR#: [id number] : 1940 Acct:[id number] Age/Sex: 83 / F Date of Service: 05/22/24 Loc: ED Accession Number: [id number] Procedure: CT cervical spine wo con Ordering Provider: Natalee Vega D.O. PROCEDURE: CT CERVICAL SPINE WO CON INDICATIONS: fall TECHNIQUE: Noncontrast 3 mm thick sections acquired from the skull base to the T4 level. Sagittal and coronal reformats were then constructed. For radiation dose reduction, the following was used: automated exposure control, adjustment of mA and/or kV according to patient size. COMPARISON: [facility], CR, XR SHOULDER LT MIN 2V, 05/22/2024, 12:30. [facility], CT, CT HEAD/BRAIN WO CON, 05/22/2024, 12:42. (Additional prior imaging is not available for review from the archive at the time of this dictation.) FINDINGS: Image quality: This examination is somewhat limited by quantum mottle artifact. Bones: No fractures or dislocations. Visualized superior ribs are intact. Focal degenerative change is seen involving the C1-C2 interface anteriorly. There is at least moderate disc space narrowing seen at C5-C6 and C6-C7, with associated endplate irregularity and sclerosis. Multiple levels of facet hypertrophy can be seen. Soft tissues: Prevertebral soft tissues are normal in thickness. No paravertebral hematomas. No apical pneumothoraces. IMPRESSION: No displaced fracture or traumatic subluxation. Multiple levels of cervical spine degenerative change can be seen, which are worst inferiorly. Dictated by: Morteza Brown M.D. on 05/22/2024 at 12:05 Approved by: Morteza Brown M.D. on 05/22/2024 at 12:07 Extremity x-ray #1: My Impression: Agree with Radiology interpretation Radiologist's Impression: [address] [address] XRay Report Signed Patient: Romelia Nuno MR#: [id number] : 1940 Acct:[id number] Age/Sex: 83 / F Date of Service: 05/22/24 Loc: ED Accession Number: [id number] Procedure: XR shoulder LT min 2V Ordering Provider: Natalee Vega D.O. PROCEDURE: XR SHOULDER LT MIN 2V INDICATIONS: fall TECHNIQUE: 3 views of the shoulder were acquired. COMPARISON: [facility], CT, CT HEAD/BRAIN WO [facility], 05/22/2024, 12:42. [facility], CT, CT CERVICAL SPINE WO [facility], 05/22/2024, 12:42. FINDINGS: Bones: No fractures or dislocations. No suspicious bony lesions. Visualized ribs appear intact. Generalized degenerative changes are seen, including involving the acromioclavicular joint Soft tissues: No suspicious soft tissue calcifications. IMPRESSION: No acute bony abnormality is seen on these plain films. Dictated by: Morteza Brown M.D. on 05/22/2024 at 12:04 Approved by: Morteza Brown M.D. on 05/22/2024 at 12:05 MDM Narrative Medical decision making narrative: This is an 83-year-old woman history diverticulitis in arrhythmia presenting with concern for left shoulder pain for 6 days after a fall and neck pain and tightness for the last day. I reviewed the patient's chart. Patient's exam is concerning for a shoulder sprain/strain. She has had improvement in her mobility since her fall and worn sling inconsistently. She does have some mild midline tenderness of the C-spine. CT head and neck are ordered and revealed no evidence of fracture or subluxation. She has slightly reduced mobility of the neck 2nd to pain however based on exam I suspect this is related to tight muscles. Her trapezius and paraspinal muscles are quite tight. Left shoulder girdle is also tight/tender. She has reduced range of motion of the left shoulder and suspect she may have SITS involvement/strain/sprain. Advised her to continue wearing the sling whenever she is up and about. Included information to contact Orthopedics if she is not continuing to have shoulder range of motion improve/normalize within 5-7 days. She does have some degenerative changes and disc height loss in the cervical spine on CT which was shared with the patient and pt's daughter. She is advised to consider using a cane ideally a 4 prong cane for support for the next few weeks anyway possibly consistently given she has had multiple recent falls. She otherwise has been in her usual state of health, labs were not obtained. She denied any symptoms or history suggestive of UTI. She is also advised to consider physical therapy for her shoulder. Discussed with the patient and her daughter careful use of baclofen given her age and recent falls. Advised 5 mg initial dose and stay at this dose unless it is not helping enough then may consider trying 10 mg up to t.i.d.. Also recommended Tylenol and heat. She has an upcoming PCP appointment to establish care with a new PCP on June 16. Return precautions provided, follow-up plan discussed, all questions answered. Discharge Plan Departure Patient Disposition: Home Clinical Impression: Other sprain of left shoulder joint, initial encounter, Neck and shoulder pain, Muscle spasm Fall from standing Qualifiers: Encounter type: initial encounter Qualified Code(s): W19.XXXA - Unspecified fall, initial encounter Instructions: How to Prevent Falls Activity Restrictions/Additional Instructions: *You have been diagnosed with [shoulder strain/sprain, neck pain, falls, muscle spasm] *What to do: *Please continue to take your regular medications as directed. [ X] New medication prescriptions sent to your pharmacy: [Baclofen (muscle relaxer)] [ ] New medication written as a paper prescription [ ] No new medications given *Please follow up with your primary care provider in 2-3 days, call for an appointment. Let them know you were seen in the Emergency Department and that we ask that you be seen in follow up. We will electronically transmit a record of today's note if your PCP is in our system. You had a few falls this week. I suspect the 2nd 1 could have been partially triggered by the fact that you had a shoulder injury. I would recommend that you continue to wear the shoulder sling that you have at home as much as possible when you are up and about as you are still having mobility issues with her left shoulder and it needs more time to heal. You may want to consider seeing an orthopedic doctor especially if you are not continuing to improve in mobility and function of your left arm over the next 3-5 days. Your x-rays today did not show any evidence of a fracture or bony abnormality in your shoulder. We also did CT scans of your head and neck. Your neck CT scan does show some degenerative changes to the bones and some mild compression of the space in between some of the vertebrae. Again no evidence of fracture on your CT scan. I suspect that much of your discomfort that you have been feeling this week is due to very tight muscles in your shoulder and neck 2nd to your falls and shoulder injury. I would recommend that you try taking Tylenol consistently around the clock for the next few days and see if this helps some with the pain. Continue with heat you can try gentle massage if this feels good. And I have also prescribed baclofen. I would like to try this at a low dose 1st 5 mg per dose and try it in the evening to see how you are feeling. You can increase the dose up to 10 mg per dose up to 3 times a day if you feel it is helping and it is not affecting your balance or mobility negatively. It sounds like you have good family support both in the home and nearby with your daughter across the street. I have included information on Orthopedics below as well as physical therapy option. You may benefit from physical therapy for your shoulder especially as I said before if you are not continuing to improve rapidly over the next few days to week. I hope you feel better soon. *If you do not have a primary care provider please contact the [facility] Resource line at [phone]. They will ask some questions about your medical history and help get you set up with a doctor in the community. *Return to Emergency Department if you should have any new, worsening or concerning symptoms, such as [fever greater than 101 F, shaking chills, worsening pain, persistent vomiting or other bothersome symptoms] Prescriptions: New baclofen 5 mg tablet 5 mg PO TID PRN (Reason: muscle spasm) 15 Days Qty: 45 0RF Rx Instructions: May take up to 10mg Three times Dly; start with 5mg, may increase to 10mg/dose if needed No Action magnesium 200 mg tablet 250 mg PO BID Qty: 0 Patient Comments: Takes 1.5 tabs bid aspirin 81 mg Capsule 81 mg PO DAILY Premarin 0.3 MG tablet 0.3 mg PO Q OTHER DAY atorvastatin 20 mg Tablet 20 mg PO BEDTIME metoprolol succinate 25 mg Tablet Extended Release 24 Hr 25 mg PO BID acetaminophen 500 mg capsule See Rx Instructions .ROUTE .COMPLEX MDD Max 3000 mg a day PRN (Reason: fever or pain) Qty: 90 0RF Rx Instructions: Take 1-2 tablets by mouth every 8 hours as needed for pain Referrals: Verna Parisi, PT [Non-Staff] - Trae Wright MD [Physician] - (fall onto L shoulder 05/17/24 mobility improving, reduced ROM. XR neg) Tamara Ayers ARNP, RN [Primary Care Provider] - Stand Alone Forms: Patient Portal/API/Survey ED Sign-out <Natalee Vega DO - Last Filed: 05/23/24 08:50> Cosign ED Attending Cosgoldenature Attestation: I was available for consultation.
[2024-05-22 14:00] VITALS: BP 130/68; PULSE 78; RESP 16; O2SAT 100
== END 2024-05-22 14:00 | disposition home or self-care (01) ==
PROVIDERS: Emergency Provider Student in an Organized Health Care Education/Training Program; PCP Nurse Practitioner Family
DX: S43.402A Unspecified sprain of left shoulder joint, initial encounter (principal); S09.90XA Unspecified injury of head, initial encounter; M25.512 Pain in left shoulder; M54.2 Cervicalgia; S69.92XA Unspecified injury of left wrist, hand and finger(s), initial encounter; M62.838 Other muscle spasm; W01.0XXA Fall on same level from slipping, tripping and stumbling without subsequent striking against object, initial encounter; Z88.0 Allergy status to penicillin
CPT/HCPCS: 70450; 72125; 73030; 99281; 99284

== ENCOUNTER → 2024-05-27 09:07 | Outpatient (CLI) | payer MEDICARE, SELFPAY ==
[2021-11-02 18:13] VITALS: BMI 27.0
[2024-05-27 10:09] LABS: Alanine Aminotransferase 18 IU/L (<35); Albumin 4.1 g/dL (3.5-5.0); Albumin Globulin Ratio 1.3 (1.0-2.8); Alkaline Phosphatase 75 U/L (38-126); Aspartate Aminotransferase 27 IU/L (14-36); Bilirubin Total 0.5 mg/dL (0.2-1.3); Blood Urea Nitrogen 20 mg/dL (7-17); Carbon Dioxide 27 mmol/L (22-32); Chloride 102 mmol/L (98-107); Cholesterol 138 mg/dL (140-199); Estimated Glomerular Filt Rate > 60 mL/min (>60); Globulin 3.1 g/dL (1.7-4.1); Glucose 118 mg/dL (80-110); HDL Cholesterol 48 mg/dL (40-60); HEMOLYSIS < 15 (0-50); LDL Cholesterol Calculated 61 mg/dL (<100); Potassium 4.1 mmol/L (3.4-5.1); Sodium 139 mmol/L (137-145); Total Protein 7.2 g/dL (6.3-8.2); Triglycerides 145 mg/dL (35-150)
[2024-05-27 10:38] LABS: Thyroid Stimulating Hormone 2.54 uIU/mL (0.47-4.68)
== END ==
LOC: LAB 09:09
PROVIDERS: Referring Provider Specialist; Visit Provider Specialist
DX: I47.10 Supraventricular tachycardia, unspecified (principal); E78.00 Pure hypercholesterolemia, unspecified; R00.2 Palpitations
CPT/HCPCS: 36415; 80053; 80061; 83735; 84443

== ENCOUNTER → 2024-07-06 12:29 | Outpatient (CLI) | payer MEDICARE, SELFPAY ==
[2021-11-02 18:13] VITALS: BMI 27.0
--- NOTE | 2024-07-06 12:30 | DI.RAD.S_ITS ---
PROCEDURE: XR DEXA AXIAL SKELETON INDICATIONS: Post menopause COMPARISON: [facility], , XR DEXA AXIAL SKELETON, 05/13/2022, 13:55. FINDINGS: Lumbar Spine: Bone mineral density 1.129 g/cm2, T score 0.5, no statistically significant change compared to prior. Left Femoral Neck: Bone mineral density 0.644 g/cm2, T score -1.8. Left Hip: Bone mineral density 0.713 g/cm2, T score -1.9, decreased compared to prior by 2.9 percent. Fracture Risk Calculation (when applicable): 10-year fracture risk of a major osteoporotic fracture 15 percent and of a hip fracture 4.5 percent. (T score greater or equal to -1.0 to: NORMAL) (T score from -1.1 to -2.4: OSTEOPENIA) (T score less than or equal to -2.5: OSTEOPOROSIS) IMPRESSION: Low bone mineral density (osteopenia) by WHO classification. Follow-up guidelines as follows: Osteoporosis: Consider a repeat DEXA and Vertebral Fracture Assessment (VFA) exam in 2 years or sooner if medically necessary, to reassess this patient's status. Osteopenia: Consider a repeat DEXA in 2-3 years to reassess this patient's status, or if there is a new clinical indication. Normal: Consider a repeat DEXA in 5 years or sooner, or if there is a new clinical indication. All treatment decisions require clinical judgment and consideration of individual patient factors, including patient preferences, comorbidities, previous drug use, risk factors not captured in the FRAX model (e.g., frailty, falls, vitamin D deficiency, increased bone turnover, interval significant decline in bone density ) and possible under- or over-estimation of fracture risk by FRAX. In addition, the NOF Guide recommends that FDA-approved medical therapies be considered in postmenopausal women and men age >= 50 years with a: * Hip or vertebral (clinical or morphometric) fracture * T-score of <=-2.5 at the spine or hip * Ten-year fracture probability by FRAX of >= 3% for hip fracture or >=20% for major osteoporotic fracture. Dictated by: Reddy Esparza M.D. on 07/06/2024 at 15:15 Approved by: Reddy Esparza M.D. on 07/06/2024 at 15:16
== END ==
PROVIDERS: PCP Family Medicine; Referring Provider Family Medicine; Visit Provider Family Medicine
DX: Z78.0 Asymptomatic menopausal state (principal); M85.852 Other specified disorders of bone density and structure, left thigh
CPT/HCPCS: 77080

== ENCOUNTER → 2025-02-10 12:36 | Outpatient (CLI) | payer MEDICARE, SELFPAY ==
[2021-11-02 18:13] VITALS: BMI 27.0
== END ==
PROVIDERS: PCP Family Medicine; Visit Provider Chiropractor
DX: R35.0 Frequency of micturition (principal)
CPT/HCPCS: 87086